=== PATIENT | female | born 1955 | race Caucasian/White ===

== ENCOUNTER 2025-06-05 08:15 | Emergency (ER) | payer MEDICARE, SELFPAY ==
--- OUTSIDE RECORDS SUMMARY | 2020-09-19 10:15 | XMS_ITS | Continuity of Care Document ---
Author Organization [facility] Address [address] [place] [address] Phone Care Team Providers Care Zoology Technical Officer Name Role Phone Nael Valdez Unavailable Unavailable Procedures Procedure Date Covid Testing [facility] Covid Testing [facility] Advance Directives Directive Yes / No Effective Date File Name No Information Encounters Encounter Description Practice Location Reason(s) For Visit Diagnoses Date Provider Providers Copied on Encounter [facility], [address] [place] [address], [id number], tel:[phone] COVID ECHD Encounter for screening for other viral diseases Patrick Ferrara. [address] [place], [place], [id number], [place]. tel:[phone] [facility], [address] [place], [place], [id number], tel:[phone] COVID ECHD Encounter for screening for other viral diseases Patrick Ferrara. [address] [place], [place], [id number], [place]. tel:[phone] Family History Family Member Type Diagnosis Age At Onset No Information Payers Payer name Insurance type Covered democrat ID Authoriza tion(s) Aetna Medicare Advantage SILVANA [id number] Social History Type Description Quantity Date Captured Comments Alcohol Use Details Unknown Caffeine Use Details Unknown Tobacco Use Status No Information Smoking Status No Information Sex Female Sexual Orientation Straight or heterosexual Gender Identity Female Chief Complaint And Reason For Visit No Information Reason For Referral Reason For Referral No Information History Of Present Illness Encounter Date Complaint History Of Prese nt Illness No Information Functional Status Date Functional Assessmen t No Information Instructions Date Instruction Additional Infor mation No Information Assessments Type Assessment Date assessment Encounter for screening for othe r viral diseases Patient Care Teams Name Effective Dates (start - stop) Status Members No Information
[2025-06-05 08:27] VITALS: BP 178/95; PULSE 78; TEMP 36.4; O2SAT 98; BMI 28.7
--- OUTSIDE RECORDS SUMMARY | 2025-06-05 08:27 | XMS_ITS | Encounter Summary ---
Author Organization [facility] Address [address] [place] [address] Care Team Providers Care Centrifugal Drier Operator Name Role Phone Lashae Schmid MD Primary Care Provider [phone] Kwasi San MD Primary Care Provider [phone] Source Comments In the event this information is protected by the Federal Confidentiality of Alcohol and Drug AbusePatient Records regulations: The Federal rules restrict any use of the information to criminally investigate or prosecute any alcohol or drug abuse patient.[facility] Encounter Details Date Type Department Care Team (Late st Contact Info) Description 04/15/2013 Patient Msg Medical Records [address] [place] [address] Provider, Ccf APPT WITH DR. 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 file No t on file documented as of this encounter Plan of Treatment Upcoming Encounters Date Type Department Care Team (Latest Contact Info) Description 06/07/2025 2:00 PM EDT Office Visit OPHT Ophthalmology [address] [place] [address] Mike Smith MD [address] [place] [address] Diagnostics, Eye Tech And [address] [address] *6-8 W, DFE/OCT PRN AVASTIN PER BABIUCH 10/10/2025 2:00 PM EST Office Visit Family Medicine [place] [address] [place] [address] Kwasi San MD [address] [place] [address] Return in about 5 months (around 09/25/2025) for MEDICARE WELLNESS. documented as of this encounter Visit Diagnoses Not on filedocumented in this encounter Care Teams Centrifugal Drier Operator Relationship Specialty Start Date End Date Lashae Schmid MD [address] [place] [place] [address] PCP - General Internal Medicine 02/04/13 10/15/14 Kwasi San MD [address] [facility] [address] [place] [address] PCP - General Family Medicine 10/16/14 documented as of this encounter
--- OUTSIDE RECORDS SUMMARY | 2025-06-05 08:27 | XMS_ITS | Encounter Summary ---
Author Organization [facility] Address [address] [place] [address] Care Team Providers Care Leather Scraper Name Role Phone Lashae Schmid MD Primary Care Provider [phone] Kwasi San MD Primary Care Provider [phone] Source Comments In the event this information is protected by the Federal Confidentiality of Alcohol and Drug AbusePatient Records regulations: The Federal rules restrict any use of the information to criminally investigate or prosecute any alcohol or drug abuse patient.[facility] Encounter Details Date Type Department Care Team (Late st Contact Info) Description 08/12/2013 Patient Msg Medical Records [address] [place] [address] Provider, Ccf Appointment Cancellation Request Social History Tobacco Use Types Packs/Day Years [...] 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 [address] Kwasi San MD [address] [place] [address] Return in about 5 months (around 09/25/2025) for MEDICARE WELLNESS. documented as of this encounter Visit Diagnoses Not on filedocumented in this encounter Care Teams Leather Scraper Relationship Specialty Start Date End Date Lashae Schmid MD [address] [place] [address] [place] [address] PCP - General Internal Medicine 02/04/13 10/15/14 [place] [address] [place] [address] [address] [place] [address] PCP - General Family Medicine 10/16/14 documented as of this encounter
--- OUTSIDE RECORDS SUMMARY | 2025-06-05 08:27 | XMS_ITS | Encounter Summary ---
Author Organization [facility] Address [address] [place] [address] Care Team Providers Care Evaporative Cooler Installer Name Role Phone Roland Estrada DO Primary Care Provider Pcp, No Primary Care Provider Unavailabl e Pcp, No Primary Care Provider Unavailabl e Pcp, No Primary Care Provider Unavailabl e Jigar Calero MD Primary Care Provider [phone] Pcp, No Primary Care Provider Unavailabl e Lashae Schmid MD Primary Care Provider Kwasi San MD Primary Care Provider [phone] Source Comments In the event this information is protected by the Federal Confidentiality of Alcohol and Drug AbusePatient Records regulations: The Federal rules restrict any use of the information to criminally investigate or prosecute any alcohol or drug abuse patient.[facility] Encounter Details Date Type Department Care Team (Late st Contact Info) Description 10/06/2006 Abstract General Surgery [address] [place] [address] Damian Ibarra Social History Tobacco Use Types Packs/Day Years Used Date Smoking Tobacco: Never Alcohol Use Standard Drinks/Week Comments No 0 (1 standard drink = 0.6 oz pur e alcohol) Comments No Sex and Gender Information Value Date Recorded Sex Assigned at Not on file Legal Sex Female 10:03 AM EST Gender Identity Not on file Sexual Orientation Not on file documented as of this encounter Progress Notes * 10/06/2006 9:37 AM WILSONThis 51 year old female submitted a completed questionnaire to [facility] for consideration of weight management surgery. Her history below is as outlined by the patient in her questionnaire response. WEIGHT HISTORY Pt states that her current height is 65 inches and her current weight is 257 #. Wt over time: Age 8 pt was 100 lbs Age 16 pt was 135 lbs. Age 23 pt was 250 lbs. Age 28 pt was 250 lbs. Age 33 pt was 180 lbs. Age 38 pt was 165 lbs. Age 43 pt was 200 lbs. Age 48 pt was 276 lbs. Heaviest weight, not counting pregnancies: 276 Diets Attempted: Cabbage Soup in over 6 months with weight loss of 10 #. Calorie count in 2004 over 12 months with weight loss of 15#. Calorie count in 2005 over 4 months with weight loss of 30#. Grapefruit in 1979 over 10 months with weight loss of 0 #. Liquied Protein Diet in 1986 over 12 months with weight loss of 125 #. Metabolife in 1999 over 10 months with weight loss of 20 #. Optifast in 1986 over 6 months with weight loss of 25 #. Nael Key in 1981 over 5 months with weight loss of 0 #. Weight Watchers in 1980 over months 8 with weight loss of 50 #. Diet Medications taken: Adipex started in 2005 for 4 months with 50 lb wt loss. Dexatrim started in 1978 for 12 with 10 lb wt loss. Fen-Phen started in 1994 for 6 with 40 lb wt loss. Pentermine started in 1986 for 8 with 120 lb wt loss. Redux started in 1991 for 3 with 5 lb wt loss. Of the medications taken, which were physician supervised? Adipex, Dexatrim, Fen-Phen, Pentermine and Redux Behavioral Diet Measures: Patient has not tried any behavioral treatments to lose weight. MEDICATIONS Allergies: Review of patient's allergies indicates: Penicillins Comment: Red Blotchy Face No Latex Allergy Current Medications: Current outpatient prescriptions LISINOPRIL 10 MG TAB, Take one(1) tablet daily. VITAMIN E 400 UNIT CAP, Take one(1) tablet twice daily. CALCIUM 500 MG TAB, Take one(1) tablet two(2) times daily. PRILOSEC 20 MG CAP, Take one(1) tablet daily. EXCEDRIN EXTRA STRENGTH 250 MG-250 MG-65 MG TAB, Take one(1) tablet four (4) times daily. DYAZIDE 37.5 MG-25 MG CAP, Take one (1) capsule daily. KLOR-CON 10 10 MEQ TAB, PRIOR SURGERY: PAST SURGICAL HISTORY: Past Surgical History of (foot) Past Surgical History of (D&C) Past Surgical History of (T&A) Removal of Tonsils,<10 Y/O (Tonsillectomy) Prior difficulty with anesthesia: No. MEDICAL HISTORY: PAST MEDICAL HISTORY: Benign Hypertension Irregular Menstruation Rectocele Esophageal Reflux General Osteoarthrosis (all major joints) Broken bones? None. Therapy or medications for any emotional disorders? Eating disorders in unanswered dx by Dr. antunez . Current therapy: No. 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 Retired from a Not answered on questionaire. Caffeine History: Patient denies using caffeine. Tobacco History: Patient never smoked or used tobacco products. Alcohol History: Yes. Wine: 2 - 4 oz. drinks per month. History of alcohol dependency: No. Drug History: No, patient denies history of drug use. FAMILY HISTORY: FAMILY HISTORY Mother: Cancer Father: Alzheimer's Disease CALL OR CONTACT CENTRE MANAGER HISTORY Date of last refuge manager exam? [address]. Performed [address] Jones, whose phone # is [phone]. Did you have a PAP test at the time of this exam? Yes. Have you ever had an abnormal PAP test? No Have you ever had polycystic ovarian syndrome? No Currently ? No History of Pregnancies: Have you ever been ? Yes. Number of live births: 5. and Number of miscarriages: 1. Have you had an evaluation of infertility? No. History of infertility treatment: No.. Menstrual History: Patient is not sure. PCOS Screening: Menstrual Irregularity: Not on BCPs, 8 or fewer periods per year. and No periods for extended period of time (4 or more months)., Skin Problems: Excess facial hair and Skin tags and Weight & Insulin-based Problems: Family hx of diabetes, heart disease or HTN EPWORTH SLEEPINESS SCALE SCORE: 14 Observed Sleep Apnea: No Family hx sleep apnea: No. BINGE EATING SCORE (Eating Habits Checklist): 36 EXERCISE HABITS QUESTIONNAIRE Past week different in terms of extended injury, illness or vacation? Yes In past week has patient been about as active as usual. In past week climbed UP avg 1 flights of stairs In past week walked an avg of 0 blocks per day Sport or recreation in past week: No sport. Avg. hrs / week watching TV / Cable / VCR: 11 - 20 Excluding TV time, avg. hrs / week spent sittin or more GRWQ Pt's Goal Wt: 150 lbs Dream Weight: 125 lbs Happy Weight: 150 lbs. Acceptable Weight: 165 lbs. Disappointing Weight: 190 lbs Single most important thing that pt. expects to change as result of wt loss: The way I feel Physically, not to have so much pain in my knees so I can Play with my grandchildren. Go up and down steps. Patient was referred to this program by PCP outside [facility] Internet TV/ Radio Karen Carter Ma documented in this encounter Plan of Treatment Upcoming Encounters Date Type Department Care Team (Latest Contact Info) Description 06/07/2025 2:00 PM EDT Office Visit OPHT Ophthalmology [address] [place] [address] Mike Smith MD [address] [place] [address] Diagnostics, Eye Tech And [address] [address] *6-8 W, DFE/OCT PRN AVASTIN PER ISMAEL 10/10/2025 2:00 PM EST Office Visit Family Medicine [place] [address] [facility] [address] Kwasi San MD [address] [facility] [address] [place] [address] Return in about 5 months (around 09/25/2025) for MEDICARE WELLNESS. documented as of this encounter Visit Diagnoses Not on filedocumented in this encounter Care Teams Evaporative Cooler Installer Relationship Specialty Start Date End Date Roland Estrada DO [address] [place] [address] PCP - General 04/01/07 12/09/12 Pcp, No [address] [place] [address] PCP - General 03/29/07 03/31/07 Pcp, No [address] [place] [address] PCP - General 07/24/06 02/15/07 Pcp, No PCP - General 12/10/12 01/19/13 Jigar Calero MD PCP - General Internal Medicine 01/20/13 01/26/13 Pcp, No PCP - General 01/27/13 02/03/13 Lashae Schmid MD [address] [place] [address] PCP - General Internal Medicine 02/04/13 10/15/14 Kwasi San MD [address] [place] [address] PCP - General Family Medicine 10/16/14 documented as of this encounter
--- OUTSIDE RECORDS SUMMARY | 2025-06-05 08:27 | XMS_ITS | Encounter Summary ---
Author Organization [facility] Address [address] [place], [place] [address] Care Team Providers Care Clock Mechanic Name Role Phone Kwasi San MD Primary Care Provider [phone] Source Comments In the event this information is protected by the Federal Confidentiality of Alcohol and Drug AbusePatient Records regulations: The Federal rules restrict any use of the information to criminally investigate or prosecute any alcohol or drug abuse patient.[facility] Encounter Details Date Type Department Care Team (Late st Contact Info) Description 05/06/2024 Patient Msg Family Medicine [place] [address] [facility] [address] [place] [id number] Provider, Ccf Appointment reschedule Social History Tobacco Use Types Packs/Day Years Used Date Smoking Tobacco: Never Smokeless Tobacco: Never Alcohol Use Standard Drinks/Week Comments Yes 0 (1 standard drink = 0.6 oz pur e alcohol) 1 glass of wine per week Social Connection and Isolation Panel Answer Date Recorded In a typical week, how many times do you talk on the phone with family, friends, or neighbors? More than three times a week 10/03/2022 How often do you get togethe r with friends or relatives? Once a week 10/03/2022 How often do you attend chur or jehovah's witness services? More than 4 times per year 10/03/2022 Do you belong to any clubs o r organizations such as pentecostal groups, unions, fraternal or athletic groups, or school groups? Yes 10/03/2022 How often do you attend meet ings of the clubs or organizations you belong to? More than 4 times per year 10/03/2022 Are you , , di vorced, , never , or living with a partner? 10/03/2022 AUDIT-C Answer Date Recorded Q1: How often do you have a drink containing alc ohol? 2-3 times a week 10/03/2022 Q2: How many drinks containi ng alcohol do you have on a typical day when you are drinking? 1 or 2 10/03/2022 Q3: How often do you have si x or more drinks on one occasion? Never 10/03/2022 Overall Financial Resource Strain (CARDIA) Answe r Date Recorded How hard is it for you to pa y for the very basics like food, housing, medical care, and heating? Somewhat hard 10/03/2022 PHQ-2 Answer Date Recorded PHQ-2 score 0 12/04/2020 [facility] of Occupat ional Health - Occupational Stress Questionnaire Answer Date Recorded Do you feel stress - tense, restless, nervous, or anxious, or unable to sleep at night because your mind is troubled all the time - these days? Not at all 10/03/2022 Exercise Vital Sign Answer Date Recorde d On average, how many days pe r week do you engage in moderate to strenuous exercise (like a brisk walk)? 3 days 10/03/2022 On average, how many minutes do you engage in exercise at this level? 30 min 10/03/2022 Hunger Vital Sign Answer Date Recorded Within the past 12 months, y ou worried that your food would run out before you got the money to buy more. Never true 10/03/20 22 Within the past 12 months, t he food you bought just didn't last and you didn't have money to get more. Never true 10/03/2022 PRAPARE - Transportation Answer Date Re corded In the past 12 months, has l ack of transportation kept you from medical appointments or from getting medications? No 09/18 In the past 12 months, has l ack of transportation kept you from meetings, work, or from getting things needed for daily living? No 10/03/2022 Housing Stability Vital Sign Answer Chris e Recorded In the last 12 months, was t here a time when you were not able to pay the mortgage or rent on time? No 10/03/2022 Number of Places Lived in the Last Year Not on f ile 10/03/2022 In the last 12 months, was t here a time when you did not have a steady place to sleep or slept in a senior care (including now)? No 10/03/2022 Area Deprivation Index Answer Date Wang rded National Score (1-100), lower number is lower ri sk 64 02/25/2023 State Score (1-10), lower number is lower risk 4 02/25/2023 Data from: https://www.neighborhoodatlas.medicine.[facility].edu/. Last address used for calculation [address] 02/25/2023 Education Answer Date Recorded What is the highest level of school you have completed or the highest degree you have received? 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 Answer Date of Assessment Author No 02/02/2018 1:56 PM Mary Bateman RN * Are you blind or do you have serious difficulty seeing, even when wearing glasses? Answer Date of Assessment Author No 02/02/2018 1:56 PM Mary Bateman, KEREN * Do you have serious difficulty walking or climbing stairs? Answer Date of Assessment Author No 02/02/2018 1:56 PM Mary Bateman RN * Do you have difficulty dressing or bathing? Answer Date of Assessment Author No 02/02/2018 1:56 PM EDT Mary Miles RN * Because of a physical, mental, or emotional condition, do you have difficulty doing errands alone such as visiting a doctor's office or shopping? Answer Date of Assessment Author No 02/02/2018 1:56 PM EDT Mary Miles RN documented as of this encounter Mental Status * Because of a physical, mental, or emotional condition, do you have serious difficulty concentrating, remembering, or making decisions? Answer Entry Date Author No 02/02/2018 1:56 PM EDT Mary Miles RN documented in this encounter Plan of Treatment Upcoming Encounters Date Type Department Care Team (Latest Contact Info) Description 06/07/2025 2:00 PM EDT Office Visit OPHT Ophthalmology [address] [place] [address] Mike Smith MD [address] [place] [address] Diagnostics, Eye Tech And [address] [address] *6-8 W, DFE/OCT PRN AVASTIN PER ISMAEL 10/10/2025 2:00 PM EST Office Visit Family Medicine [place] [address] [place] [address] Kwasi San MD [id number] [place] [address] Return in about 5 months (around 09/25/2025) for MEDICARE WELLNESS. documented as of this encounter Visit Diagnoses Not on filedocumented in this encounter Care Teams Clock Mechanic Relationship Specialty [place] [address] [place] [address] [address] [place] [address] PCP - General Family Medicine 10/16/14 documented as of this encounter
--- OUTSIDE RECORDS SUMMARY | 2025-06-05 08:27 | XMS_ITS | Encounter Summary ---
Author Organization [facility] Address [address] [place] [id number] Care Team Providers Care Cigar Packing Examiner Name Role Phone Kwasi San MD Primary Care Provider [phone] Source Comments In the event this information is protected by the Federal Confidentiality of Alcohol and Drug AbusePatient Records regulations: The Federal rules restrict any use of the information to criminally investigate or prosecute any alcohol or drug abuse patient.[facility] Encounter Details Date Type Department Care Team (Late st Contact Info) Description 06/10/2023 [place] [address] Provider, [facility] Actionable Imaging Result Notification Patient Outreach Social History Tobacco Use Types Packs/Day Years Used Date Smoking Tobacco: Never Smokeless Tobacco: Never Alcohol Use Standard Drinks/Week Comments Yes 0 (1 standard drink = 0.6 oz pur e alcohol) occassional Social Connection and Isolation Panel Answer Date Recorded In a typical week, how many times do you talk on the phone with family, friends, or neighbors? More than three times a week 10/03/2022 How often do you get togethe r with friends or relatives? Once a week 10/03/2022 How often do you attend chur ch or evangelical services? More than 4 times per year 10/03/2022 Do you belong to any clubs o r organizations such as presybeterian groups, unions, fraternal or athletic groups, or [...] Answer Date Recorded PHQ-2 score 0 12/04/2020 [facility] - Occupational Stress [...] place to sleep or slept in a chcf (including now)? No 10/03/2022 Area Deprivation Index Answer Date Wang rded National Score (1-100), lower number is lower ri sk 64 02/25/2023 State Score (1-10), lower number is lower risk 4 02/25/2023 Data from: https://www.neighborhoodatlas.medicine.[facility].edu/. 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 Answer Date of Assessment Author No 02/02/2018 1:56 PM Mary Bateman, KEREN * Are you blind or do you have serious difficulty seeing, even when wearing glasses? Answer Date of Assessment Author No 02/02/2018 1:56 PM Mary Bateman, KEREN * Do you have serious difficulty walking or climbing stairs? Answer Date of Assessment Author No 02/02/2018 1:56 PM Mary Bateman, RN * Do you have difficulty dressing or bathing? Answer Date of Assessment Author No 02/02/2018 1:56 PM Mary Bateman, KEREN * Because of a physical, mental, or [...] PM EDT Office Visit [facility] [address] [place] [address] Mike Smith MD [address] [place] [address] Diagn[facility] [address] [address] *6-8 W, DFE/OCT PRN AVASTIN PER BABIUCH 10/10/2025 2:00 PM EST Office Visit Family [facility] [place] [address] [place] [address] Kwasi San MD [address] [place] [address] Return in about 5 months (around 09/25/2025) for MEDICARE WELLNESS. documented as of this encounter Visit Diagnoses Not on filedocumented in this encounter Care Teams Cigar Packing Examiner Relationship Specialty Start Date End Date Kwasi San MD [address] [facility] [address] [place] [address] PCP - General Family Medicine 10/16/14 documented as of this encounter
--- OUTSIDE RECORDS SUMMARY | 2025-06-05 08:27 | XMS_ITS | Encounter Summary ---
Author Organization [facility] Address [address] [place] [id number] Care Team Providers Care Electronic Operator Name Role Phone Kwasi San MD Primary Care Provider [phone] Source Comments In the event this information is protected by the Federal Confidentiality of Alcohol and Drug AbusePatient Records regulations: The Federal rules restrict any use of the information to criminally investigate or prosecute any alcohol or drug abuse patient.[facility] Encounter Details Date Type Department Care Team (Late st Contact Info) Description 02/01/2021 Patient [facility] [address] [place] [address] Provider, [facility] ADVANCE DIRECTIVES INFORMATION Social History Tobacco Use Types Packs/Day Years Used Date Smoking Tobacco: Never Smokeless Tobacco: Never Alcohol Use Standard Drinks/Week Comments Yes 0 (1 standard drink = 0.6 oz pur e alcohol) glass of wine once a month Social Connection and Isolation Panel Answer Date Recorded In a typical week, how many times do you talk on the phone with family, friends, or neighbors? More than three times a week 12/04/2020 How often do you get togethe r with friends or relatives? More than three times a week 12/04/2020 How often do you attend chur or taoist services? More than 4 times per year 12/04/2020 Do you belong to any clubs o r organizations such as yazidism groups, unions, fraternal or athletic groups, or school groups? Yes 12/04/2020 How often do you attend meet ings of the clubs or organizations you belong to? 1 to 4 times per year 12/04/2020 Are you , , di vorced, , never , or living with a partner? 12/04/2020 AUDIT-C Answer Date Recorded Q1: How often do you have a drink containing alc ohol? 2-3 times a week 12/04/2020 Q2: How many drinks containi ng alcohol do you have on a typical day when you are drinking? 1 or 2 12/04/2020 Q3: How often do you have si x or more drinks on one occasion? Never 12/04/2020 Overall Financial Resource Strain (CARDIA) Answe r Date Recorded How hard is it for you to pa y for the very basics like food, housing, medical care, and heating? Not hard at all 12/04/2020 PHQ-2 Answer Date Recorded PHQ-2 score 0 12/04/2020 [facility] - Occupational Stress Questionnaire Answer Date Recorded Do you feel stress - tense, restless, nervous, or anxious, or unable to sleep at night because your mind is troubled all the time - these days? Not at all 12/04/2020 Exercise Vital Sign Answer Date Recorde d On average, how many days pe r week do you engage in moderate to strenuous exercise (like a brisk walk)? 3 days 12/04/2020 On average, how many minutes do you engage in exercise at this level? 20 min 12/04/2020 Hunger Vital Sign Answer Date Recorded Within the past 12 months, y ou worried that your food would run out before you got the money to buy more. Never true 12/04/19 21 Within the past 12 months, t he food you bought just didn't last and you didn't have money to get more. Never true 12/04/2020 PRAPARE - Transportation Answer Date Re corded In the past 12 months, has l ack of transportation kept you from medical appointments or from getting medications? No 11/19 In the past 12 months, has l ack of transportation kept you from meetings, work, or from getting things needed for daily living? No 12/04/2020 Housing Stability Vital Sign Answer Chris e Recorded In the last 12 months, was t here a time when you were not able to pay the mortgage or rent on time? No 12/04/2020 In the last 12 months, how many places have you lived? 1 12/04/2020 In the last 12 months, was t here a time when you did not have a steady place to sleep or slept in a senior living (including now)? No 12/04/2020 Area Deprivation Index Answer Date Wang rded National Score (1-100), lower number is lower ri sk Not on file 09/23/2020 State Score (1-10), lower number is lower risk N ot on file 09/23/2020 Data from: https://www.neighborhoodatlas.medicine.[facility].edu/. 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 documented as of this encounter Visit Diagnoses Not on filedocumented in this encounter Care Teams Electronic Operator Relationship Specialty Start Date End Date Kwasi San MD [address] [facility] [address] [place] [address] PCP - General Family Medicine 10/16/14 documented as of this encounter
--- OUTSIDE RECORDS SUMMARY | 2025-06-05 08:27 | XMS_ITS | Clinical Summary ---
Author Organization Address [address] [place], [place] [id number] Care Team Providers Care Gang Investigator Name Role Phone Kwasi San MD Primary Care Provider [phone] Allergies Active Allergy Reactions Criticality Noted Date Comments Clindamycin Itching 05/15/2009 Clindamycin Hcl Rash 02/03/2023 Clindamycin Palmitate Rash 02/03/2023 Penicillins High 10/06/2006 Red Blotchy Face Medications * This document contains information received from the source organization and may not represent a complete record from that organization. MULTIVITAMIN CAP Take one(1) capsule daily. 0 8 Active ascorbic acid(VITAMIN C 500 MG TAB)Indications:Ot her and unspecified postsurgical nonabsorption Take one(1) tablet daily. 0 8 Active cyanocobalamin(VIT DEWEY B-12 1,000 MCG SUBLINGUAL TAB)Indications:Ot her and unspecified postsurgical nonabsorption Take one(1) tablet daily. 0 8 Active VITAMIN E 400 UNIT CAPIndications:Oth er and unspecified postsurgical nonabsorption Take one(1) tablet daily. 0 8 Active mometasone (ELOCON) 0.1 % cream Use in both ears once daily as needed for ear itching and flaking. 15 g 1 3 Active oxymetazoline (AFRIN, OXYMETAZOLINE,) 0.05 % nasal spray Use 2 Sprays in the nose two times a day. 22 mL 3 Active cholecalciferol (VITAMIN D-3) 50 mcg (2,000 unit) tabletIndications: Vitamin D deficiency Take 1 tablet by mouth once daily. 90 tablet 3 4 Active tacrolimus (PROTOPIC) 0.03 % ointmentIndication s:Perioral dermatitis Apply to affected area two times a day. 60 g 3 5 Active vit C,G-Vt-joebc-lutei n-zeaxan (PRESERVISION AREDS-2) 250-90-40-1 mg Take 1 capsule by mouth two times a day with meals. Active amLODIPine (NORVASC) 5 mg tabletIndications: Essential hypertension, benign Take 1 tablet by mouth once daily. 90 tablet 5 Active lisinopril (ZESTRIL) 40 mg tabletIndications: Essential hypertension, benign Take 1 tablet by mouth once daily. 90 tablet 5 Active Active Problems Problem Noted Date Diagnosed Date Exudative age-related macula r degeneration, left eye, with active choroidal neovascularization 12/18/2023 HLD (hyperlipidemia) 12/24/2022 Assessment & Plan (07/30/2023 9:43 AM EDT): Stable on medication Assessment & Plan (12/24/2022 1:41 PM EST): Assessment: monitored by PCP S/P gastric bypass 12/24/2022 Assessment & Plan (09/15/2023 2:07 PM EST): Assessment: Body mass index is 27.25 kg/m . Assessment & Plan (07/30/2023 9:46 AM EDT): History of Gastric Bypass Assessment & Plan (12/24/2022 2:36 PM EST): Assessment: 2002 PUD (peptic ulcer disease) 12/24/2022 Assessment & Plan (07/30/2023 9:47 AM EDT): Stable on PPI Assessment & Plan (12/24/2022 2:37 PM EST): Assessment: takes omeprazole. Follows with GI Screen for colon cancer 05/14/2018 Overview (05/14/2018): Added automatically from request for surgery [id number] S/P laparoscopic cholecystectomy 02/16/2018 OA (osteoarthritis) of knee 03/07/2013 Essential hypertension, benign 04/08/2007 Assessment & Plan (09/15/2023 2:06 PM EST): Assessment: managed on medication BP 150/86 Assessment & Plan (07/30/2023 9:43 AM EDT): Stable on medication BP today To take medication morning of surgery Assessment & Plan (12/24/2022 1:41 PM EST): Assessment: treated and managed by PCP Resolved Problems Problem Noted Date Diagnosed Date Resolved Date Back pain 01/30/2018 02/02/2018 Obesity, Class II, BMI 35-39.9 E66.9 01/30/2018 12/30/2022 Acute cholecystitis 2018 02/03/20 18 Overview (01/31/2018): Added automatically from request for surgery [id number] Uterovaginal prolapse 11/23/20122012 POST OP 01/26/2009 08/18/2013 Other and unspecified postsu rgical nonabsorption 12/07/2008 05/11/2015 Esophageal reflux 04/08/2007 05/11/2015 Eating disorder, unspecified 10/07/2006 08/18/2013 Encounters Date Type Department Care Team Description 04/25/2025 2:00 PM EDT Office Visit Family Medicine [place] [address] [place] [address] Kwasi San MD Essential hypertension, benign (Primary Dx); Encounter for screening mammogram for breast cancer 04/25/2025 Travel 04/18/2025 2:00 PM EDT Office Visit [facility] Ophthal[facility] [address] [place] [address] Flory Woodson MD Diagnostics, Eye Tech And Pseudophakia of both eyes (Primary Dx); Exudative age-related macular degeneration, left eye, with active choroidal neovascularization (HCC); Nonexudative age-related macular degeneration, right eye, intermediate dry stage 04/12/2025 Refill [facility] [place] [address] [id number] Kwasi San MD Refill Request 04/12/2025 Refill Family Medicine [place] [address] [id number] Kwasi San MD Refill Request 04/11/2025 Travel from Last 3 Months Family History Medical History Relation Comments Alzheimer's Disease Father Cancer Mother colon,lymps Coronary Artery Disease Mother Difficulty with anesthesia No Family History Relation Status Comments Father (Age 70) alzheimer's Mother (Age 75) Cancer Sister 1 Alive Sister 2 Alive Sister 3 Alive Sister 4 Alive Social History Tobacco Use Types Packs/Day Years Used Date Smoking Tobacco: Never Smokeless Tobacco: Never Tobacco Cessation:Counseling Given: Not Answered Alcohol Use Standard Drinks/Week Comments Yes 0 (1 standard drink = 0.6 oz pur e alcohol) 1 glass of wine per week [facility] Utilities Answer Date Recorded In the past 12 months has [employer], gas, oil, or water [employer] threatened to shut off services in your home? No 06/30/2024 Social Connection and Isolation Panel Answer Date Recorded In a typical week, how many times do you talk on the phone with family, friends, or neighbors? More than three times a week 06/30/2024 How often do you get togethe r with friends or relatives? More than three times a week 06/30/2024 How often do you attend chur ch or adventist services? More than 4 times per year 06/30/2024 Do you belong to any clubs o r organizations such as latter day groups, unions, fraternal or athletic groups, or school groups? Yes 06/30/2024 How often do you attend meet ings of the clubs or organizations you belong to? More than 4 times per year 06/30/2024 Are you , , di vorced, , never , or living with a partner? 06/30/2024 AUDIT-C Answer Date Recorded Q1: How often do you have a drink containing alc ohol? 2-3 times a week 06/30/2024 Q2: How many drinks containi ng alcohol do you have on a typical day when you are drinking? 1 or 2 06/30/2024 Q3: How often do you have si x or more drinks on one occasion? Never 06/30/2024 Overall Financial Resource Strain (CARDIA) Answe r Date Recorded How hard is it for you to pa y for the very basics like food, housing, medical care, and heating? Not very hard 06/30/2024 PHQ-2 Answer Date Recorded PHQ-2 score 0 06/30/2024 [facility] - Occupational Stress Questionnaire Answer Date Recorded Do you feel stress - tense, restless, nervous, or anxious, or unable to sleep at night because your mind is troubled all the time - these days? Only a little 06/30/2024 Exercise Vital Sign Answer Date Recorde d On average, how many days pe r week do you engage in moderate to strenuous exercise (like a brisk walk)? 3 days 06/30/2024 On average, how many minutes do you engage in exercise at this level? 20 min 06/30/2024 Hunger Vital Sign Answer Date Recorded Within the past 12 months, y ou worried that your food would run out before you got the money to buy more. Never true 06/30/20 24 Within the past 12 months, t he food you bought just didn't last and you didn't have money to get more. Never true 06/30/2024 PRAPARE - Transportation Answer Date Re corded In the past 12 months, has l ack of transportation kept you from medical appointments or from getting medications? No 06/19 In the past 12 months, has l ack of transportation kept you from meetings, work, or from getting things needed for daily living? No 06/30/2024 Housing Stability Vital Sign Answer Chris e [...] place to sleep or slept in a detention (including now)? No 10/03/2022 Area Deprivation Index Answer Date Wang rded National Score (1-100), lower number is lower ri sk 64 02/25/2023 State Score (1-10), lower number is lower risk 4 02/25/2023 Data from: https://www.neighborhoodatlas.medicine.[facility].edu/. 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 Not on file No t on file Last Filed Vital Signs Vital Sign Reading Time Taken Comments Blood Pressure 133/79 04/25/2025 1:56 PM EDT Pulse 69 04/25/2025 1:56 PM EDT Temperature 36.5 C (97.7 F) 04/25/2025 1:56 PM EDT Respiratory Rate 16 09/24/2023 12:09 PM EST Oxygen Saturation 99% 04/25/2025 1:56 PM EDT Inhaled Oxygen Concentration - - Weight 75.9 kg (167 lb 5.3 oz) 04/25/2025 1:56 P M EDT Height 162.6 cm (5' 4 ) 07/01/2024 1:47 PM EDT Body Mass Index 28.72 07/01/2024 1:47 PM EDT Plan of Treatment Upcoming Encounters Date Type Department Care Team (Latest Contact Info) Description 06/07/2025 2:00 PM EDT Office Visit [facility] Ophthalmology [address] [place], [place] [phone] Mike Smith MD [address] [place] [address] Diagnostics, Eye Tech And [address] [address] *6-8 W, DFE/OCT PRN AVASTIN PER BABIUCH 10/10/2025 2:00 PM EST Office Visit Family Medicine [place] [address] [place], [place] [id number] Kwasi San MD [address] [facility] [address] [facility] [place] [id number] Return in about 5 months (around 09/25/2025) for MEDICARE WELLNESS. Health Maintenance Due Date Last Done Comments Hepatitis C Screening 1971 CT Colonography 1998 Cologuard (FIT-DNA) 1998 Fecal Occult Blood 1998 Sigmoidoscopy 1998 Pneumococcal Vaccine: 50+ (1 of 1 - PCV) 2003 Shingrix Vaccine (1 of 2) 2003 Bone Density Screening 2018 Mammogram Screening 06/17/2022 06/17/2021, 5 Advance Directive Discussion 10/19/2024 Medicare Advantage Annual We llness Visit 10/19/2024 07/01/2024 Influenza Vaccine (#1) 2025 Anxiety Screening 07/01/2025 07/01/2024 Depression Screening 07/01/2025 07/01/2024 Annual PCP Team Chronic Dise ase Visit 04/25/2026 04/25/2025, 05/14/2018 Diabetes Screening 06/29/2027 06/29/2024, 1 10/21/2022, 02/20/2023, Additional history exists RSV Vaccine (1 - 1-dose 75+ series) 01/30/2028 DTaP,Tdap,Td Vaccine (2 - Td or Tdap) 05/14/2028 05/14/2018 (Patient/Parent/Guardian Counseled and Declines) Lipid Screening 06/29/2029 06/29/2024, 02/2023, 06/05/2021, Additional history exists Colonoscopy 11/11/2032 11/11/2022, 06/2018, 08/27/2018, Additional history exists Colorectal Cancer Screening 11/11/2032 Medical Devices Implanted Type Area Acoustical Logging Engineer Device Identifier Shelf Expiration Date Model / Serial / Lot [id number]-Dp- A-Kind Implant - [id number] Implanted:Qty: 2 on 03/07/2013 at [facility] Implant Right: Bone - Knee DEPUY 08/07/2014 [id number] / / [id number] Description:Smartset HV Bone Cement [id number]-Bue-Rz- A-Kind Implant - [id number] Implanted:Qty: 1 on 03/07/2013 at [facility] Implant Right: Bone - Knee DEPUY 1960-50-3 000 / / [id number] Description:Sigma Femoral Po sterior Stabilized [id number]-Qeo-Fi- A-Kind Implant - [id number] Implanted:Qty: 1 on 03/07/2013 at [facility] Implant Right: Bone - Knee DEPUY 11/07/2022 1581-30-0 00 / / [id number] Description:PFC Sigma Tibial Tray Fixed Bearing Modular COCR 3 [id number]-Ev- A-Kind Implant - [id number] Implanted:Qty: 1 on 03/07/2013 at [facility] Implant Right: Bone - Knee DEPUY 06/07/2022 [id number] / / [id number] Description:PFC SigmModular Stem Cemented 13mm x 30mm [id number]-[id number]-Te- A-Kind Implant - [id number] Implanted:Qty: 1 on 03/07/2013 at [facility] Implant Right: Bone - Knee DEPUY 02/05/2017 1581-23-1 15 / / [id number] Description:PFC Sigma Tibial Insert Fixed Bearing Stabilized 3, 15mm Imp Propel Contour Sinus - [id number] Implanted:Qty: 1 on 09/24/2023 at [facility] Implant Right: Sinus [employer] 01/15/2025 [id number] / / [id number] Imp Propel Contour Sinus - [id number] Implanted:Qty: 1 on 09/24/2023 at [facility] Implant Left: Sinus [employer] 12/17/2024 [id number] / / [id number] [place] Aspheric Uv Absorbing Iol +22.5d Implanted:Qty: 1 on 08/07/2023 by Beatrice Teresa V, MD at [facility] Intraocular Lens Left: Eye [facility] 12/20/2026 CC60WF.22 5 / [id number] / Description:N/A [place] Aspheric Uv Absorbing Iol +16d Implanted:Qty: 1 on 09/16/2023 by Beatrice Teresa V, MD at [facility] Intraocular Lens Right: Eye [facility] 03/23/2027 CC60WF.16 0 / [id number] / Description:-0.41 0---Dome Pat 35mm Pfc Sig Sm Kn - [id number] Implanted:Qty: 1 on 03/07/2013 at [facility] Joint - Patella Right: Bone - Knee [employer] 01/05/2018 [id number] / / [id number] Description:Oval Dome Patell a 3-Peg, 35mm Plug Perfix Bard Medium Taper Polypropylene 1.55x1.3in Surgical - [id number] Implanted:Qty: 1 on 06/11/2016 at [facility] Mesh Left: Inguinal [employer] 01/17/2020 [id number] / / [id number] Procedures Procedure Name Priority Date/Time Associated Diagnosis Comments OCT MACULA CIRRUS OU (BOTH EYES) Routine 04/18/2025 2:10 PM EDT Exudative age-related macular degeneration, left eye, with active choroidal neovascularization (HCC) Nonexudative age-related macular degeneration, right eye, intermediate dry stage BASIC METABOLIC PANEL Routine 06/29/2024 8:35 AM EDT Essential hypertension, benign LIPID PANEL, FASTING Routine 06/29/2024 8:35 AM EDT HLD (hyperlipidemia) COLONOSCOPY DIAGNOSTIC Routine 11/11/2022 2:18 PM EST History of colon polyps Elevated fecal calprotectin POPEYE SCREENING Routine 06/17/2021 9:36 AM EDT Encounter for screening mammogram for malignant neoplasm of breast from Last 3 Months or Most Recently Relevant to Health Maintenance Results * OCT MACULA CIRRUS OU (BOTH EYES) (04/18/2025 2:10 PM EDT) Anatomical Region Laterality Modality Other Narrative 04/18/2025 2:20 PM EDT Date of Procedure 04/18/2025. Transaction Manager Information [employer] Medical Sergeant: VAZQUEZ. OCT Macula Interpretation Right Eye Findings include Drusen, RPE Irregularity; Negative for Intraretinal fluid, Subretinal fluid. Left Eye Findings include Subretinal fluid, PED, RPE Irregularity; Negative for Intraretinal fluid. Interval Change Right Eye Stable. Left Eye Stable. Mike Smith MD OPHTHALMOLOGY Final Result * (ABNORMAL) LIPID PANEL BASIC (06/29/2024 8:35 AM EDT) Cholesterol, Total 243(H) <200 mg/dL 06/29/2024 6:11 PM EDT [facility] Comment: <200 mg/dL, Desirable 200-239 mg/dL, Borderline high >239 mg/dL, High Triglyceride 63 <150 mg/dL 06/29/2024 6:11 PM EDT [facility] Comment: <150 mg/dL, Normal 150-199 mg/dL, Borderline high 200-499 mg/dL, High >499 mg/dL, Very high HDL Cholesterol 129 >39 mg/dL 4 6:11 PM EDT [facility] Comment: 40-59 mg/dL, Acceptable >59 mg/dL, High: Negative risk factor for coronary heart disease <40 mg/dL, Low: Positive risk factor for coronary heart disease Non HDL Cholesterol 114 <130 mg/dL 06/29/2024 6:11 PM EDT [facility] Comment: <130 mg/dL, Optimal 130-159 mg/dL, Near optimal/above optimal 160-189 mg/dL, Borderline high 190-219 mg/dL, High >219 mg/dL, Very high Secondary prevention optimal non HDL Cholesterol levels are recommended to be <100 mg/dL Fasting Time 12 hrs 06/29/2024 6:11 PM EDT [facility] VLDL Cholesterol 13 <30 mg/dL 06/29/20 24 6:11 PM EDT [facility] TC:HDL Ratio 1.88 <5.10 06/29/2024 6:11 PM EDT [facility] LDL Cholesterol, Calculated 101(H) <100 mg/dL 06/29/2024 6:11 PM EDT [facility] Comment: <100 mg/dL, Optimal 100-129 mg/dL, Near optimal/above optimal 130-159 mg/dL, Borderline high 160-189 mg/dL, High >189 mg/dL, Very high Secondary prevention optimal LDL Cholesterol levels are recommended to be < 70 mg/dL LDL:HDL Ratio 0.78 <2.54 06/29/2024 6:11 PM EDT [facility] Comment: Reference: 1. National Cholesterol Education Program ATP III Guideline At-A-Glance Quick Desk Reference: National Heart, Lung, and Blood [place]. National Institutes of Health. 2001: NIH Publication No. 01-3305. 2. An International Atherosclerosis Society position paper: global recommendations for the management of dyslipidemia: executive summary, Atherosclerosis. 2014: 232(2):410-413. Blood BLOOD SPECIMEN / Unknown Venipuncture / Unknown 06/29/2024 8:35 AM EDT 06/29/2024 8:35 AM EDT Kwasi San MD LABORATORY Final Result [facility] [address] [address] [place] [address], [facility] [address] [place] [id number] * (ABNORMAL) BASIC METABOLIC PANEL (06/29/2024 8:35 AM EDT) [facility] Glucose 87 74 - 99 mg/dL 06/29/2024 9:03 AM EDT [facility] Comment: The [place] Diabetes Association (ADA) provides guidance for cutoff values for fasting glucose and random glucose. The ADA defines fasting as no caloric intake for at least 8 hours. Fasting plasma glucose results between 100 to 125 mg/dL indicate increased risk for diabetes (prediabetes). Fasting plasma glucose results greater than or equal to 126 mg/dL meet the criteria for diagnosis of diabetes. In the absence of unequivocal hyperglycemia, results should be confirmed by repeat testing. In a patient with classic symptoms of hyperglycemia or hyperglycemic crisis, random plasma glucose results greater than or equal to 200 mg/dL meet the criteria for diagnosis of diabetes. Reference: Standards of Medical Care in Diabetes 2016, [place] Diabetes Association. Diabetes Care. 2016.39(Suppl 1). BUN 23(H) 7 - 21 mg/dL 06/29/2024 9:03 AM [facility] Creatinine 0.71 0.58 - 0.96 mg/dL 06/29/2024 9:03 AM [facility] Sodium 136 136 - 144 mmol/L 06/29/2024 9:03 AM [facility] Potassium 4.2 3.7 - 5.1 mmol/L 06/29/2024 9:03 AM [facility] Chloride 98 98 - 107 mmol/L 06/29/2024 9:03 AM [facility] CO2 25 22 - 30 mmol/L 06/29/2024 9:03 AM [facility] Anion Gap 13 8 - 15 mmol/L 06/29/2024 9:03 AM [facility] Calcium, Total 10.0 8.5 - 10.2 mg/dL 06/29/2024 9:03 AM [facility] Estimated Glomerular Filtration Rate 91 >=60 mL/min/1.7 3m 06/29/2024 9:03 AM [facility] Comment:Estimated Glomerular Filtration Rate (eGFR) is calculated using the 2020 CKD-EPI creatinine equation. This equation utilizes serum creatinine, sex, and age as parameters. The creatinine assay has traceable calibration to isotope dilution- mass spectrometry. Refer to KDIGO guidelines for clinical interpretation. In patients with unstable renal function, e.g. those with acute kidney injury, the eGFR may not accurately reflect actual GFR. Blood BLOOD SPECIMEN / Unknown Venipuncture / Unknown 06/29/2024 8:35 AM EDT 06/29/2024 8:35 AM EDT us Kwasi San MD LABORATORY Final Result [facility] [address] [place] [address] * COLONOSCOPY DIAGNOSTIC (11/11/2022 2:18 PM EST) Anatomical Region Laterality Modality Other 11/11/2022 2:18 PM EST Narrative 11/11/2022 3:21 PM EST A31 Gastrointestinal Endoscopy Patient Name: Reina Clancy Procedure Date: 11/11/2022 2:18 PM Date of : 1955 Admit Type: Outpatient Age: 67 Room: A3 PROC 1 Gender: Female Note Status: Finalized Attending MD: Daniel Ansari MD Procedure: Colonoscopy Indications: High risk colon cancer surveillance: Personal history of colonic polyps, Family history of colon cancer in a first-degree relative before age 60 years Providers: Daniel Ansari MD Patient Profile: This is a 67 year old female. Refer to note in patient chart for documentation of history and physical. Last Colonoscopy: August 2018. Referring Physician: Marva Fung (Referring MD) Medicines: Monitored Anesthesia Care Complications: No immediate complications. Requesting Provider: Procedure: Pre-Anesthesia Assessment: - ASA Grade Assessment: II - A patient with mild systemic disease. After I obtained informed consent, the scope was passed under direct vision. Throughout the procedure, the patient's blood pressure, pulse, and oxygen saturations were monitored continuously. The Colonoscope was introduced through the anus and advanced to the cecum, identified by appendiceal orifice and ileocecal valve. The Colonoscope was introduced through the anus and advanced to the cecum, identified by appendiceal orifice and ileocecal valve. The colonoscopy was performed without difficulty after switching from adult to pediatric colonoscope to navigate sigmoid colon. The patient tolerated the procedure well. The quality of the bowel preparation was good. The ileocecal valve, appendiceal orifice, and rectum were photographed. Moderate Sedation: MAC anesthesia was administered by the anesthesia team. Findings: Hemorrhoids were found on perianal exam. A 9 mm polyp was found in the transverse colon. The polyp was sessile. The polyp was removed with a cold snare. Resection and retrieval were complete. Multiple small and large-mouthed diverticula were found in the sigmoid colon and descending colon. Non-bleeding external and internal hemorrhoids were found during retroflexion. The hemorrhoids were large. The exam was otherwise without abnormality on direct and retroflexion views. Random colon biopsies taken with a cold forceps from right and left colon for microscopic colitis (patient history of diarrhea and elevated calprotectin) Impression: - Hemorrhoids found on perianal exam. - One 9 mm polyp in the transverse colon, removed with a cold snare. Resected and retrieved. - Diverticulosis in the sigmoid colon and in the descending colon. - Non-bleeding external and internal hemorrhoids. - The examination was otherwise normal on direct and retroflexion views. Estimated Blood Loss: Estimated blood loss was minimal. Recommendation: - Discharge patient to home (ambulatory). - Await pathology results. - Repeat colonoscopy in 5 years for surveillance. - Patient has a contact number available for emergencies. The signs and symptoms of potential delayed complications were discussed with the patient. Return to normal activities tomorrow. Written discharge instructions were provided to the patient. - Continue present medications. - Resume previous diet. Procedure Code(s): --- Professional --- 73851, Colonoscopy, flexible; with removal of tumor(s), polyp(s), or other lesion(s) by snare technique Diagnosis Code(s): --- Professional --- Z12.11, Encounter for screening for malignant neoplasm of colon Z86.010, Personal history of colonic polyps K64.8, Other hemorrhoids D12.3, Benign neoplasm of transverse colon (hepatic flexure or splenic flexure) Z80.0, Family history of malignant neoplasm of digestive organs K57.30, Diverticulosis of large intestine without perforation or abscess without bleeding CPT copyright 2020 [place] [employer]. All rights reserved. The codes documented in this report are preliminary and upon postdoctoral scientist review may be revised to meet current compliance requirements. Attending Participation: I personally performed the entire procedure. Scope In: 2:43:25 PM Scope Out: 3:13:10 PM MD Daniel Hager MD 11/11/2022 3:18:50 PM This report has been signed electronically by Daniel Ansari MD Number of Addenda: 0 Note Initiated On: 11/11/2022 2:18 PM us Marva Fung APRN.GRADES 1 THRU 6 VISITING TEACHER DIGESTIVE DISEASE Fin al Result * POPEYE SCREENING (06/17/2021 9:36 AM EDT) Anatomical Region Laterality Modality Other 06/17/2021 9:36 AM EDT Impressions 06/17/2021 11:02 AM EDT IMPRESSION: NEGATIVE There is no mammographic evidence of malignancy. A 1 year screening mammogram is recommended. Darren Egan M.D., lp/nithya:06/17/2021 11:02:02 [employer] Flatbed Driver(s): RT Erika(R)(M), [facility] letter sent: Normal over 40 Mammogram BI-RADS: 1 Negative Multiple national specialty organizations have released breast cancer screening guidelines for women at average risk for developing breast cancer - guidelines that are based on both evidence and opinion, yet differ on when to start and how often to screen for breast cancer. With representation from Breast Imaging, Internal Medicine, Women's Health, Family Medicine, and Medical/Surgical Oncology, the has carefully reviewed the data and reached the following consensus: 1) All women should engage in shared decision-making with their providers to decide when to start and how often to screen; 2) All women should have the opportunity to start screening mammography at age 40; 3) For women ages 45-55, we recommend annual screening mammograms; 4) For women ages 55 and over, we support both the transition from an annual to a biennial interval if this aligns more with patient's values and preferences, or continuation with annual screening; 5) All women should discuss with their providers when to stop screening mammograms. Isotope Hydrologist: Nithya Transcribe Date/Time: Jun 17 2021 9:19A Dictated by: DARREN EGAN MD This examination was interpreted and the report reviewed and electronically signed by: DARREN EGAN MD on Jun 17 2021 11:02AM EST Narrative 06/17/2021 11:02 AM EDT * * *Final Report* * * DATE OF EXAM: Jun 17 2021 9:36AM [id number] - [facility] SCREENING / PROCEDURE REASON: Encounter for screening mammogram for malignant neoplasm of breast * * * * Physician Interpretation * * * * RESULT: #[id number] - [facility] SCREENING BILATERAL DIGITAL SCREENING MAMMOGRAM WITH CAD: 06/17/2021 HISTORY: / Screening Mammogram-Patient reports NO symptoms. The technologist notes that positioning was limited secondary to physical constraints of the patient (right shoulder stiffness). The best images possible were obtained. RESULT: TECHNIQUE: The study was acquired using full field digital technology and interpreted from soft copy. Current study was also evaluated with a Computer Aided Detection (CAD). Comparison is made to exams dated: 05/31/2015 mammogram - [facility] and 06/26/2004 mammogram. There are scattered fibroglandular elements in both breasts. No significant masses, calcifications, or other findings are seen in either breast. There has been no significant interval change. Procedure Note Provider, [facility] - 06/17/2021 * * *Final Report* * * DATE OF EXAM: Jun 17 2021 9:36AM [id number] - [facility] SCREENING / PROCEDURE REASON: Encounter for screening mammogram for malignant neoplasm of breast * * * * Physician Interpretation * * * * RESULT: #[id number] - [facility] SCREENING BILATERAL DIGITAL SCREENING MAMMOGRAM WITH CAD: 06/17/2021 HISTORY: / Screening Mammogram-Patient reports NO symptoms. The technologist notes that positioning was limited secondary to physical constraints of the patient (right shoulder stiffness). The best images possible were obtained. RESULT: TECHNIQUE: The study was acquired using full field digital technology and interpreted from soft copy. Current study was also evaluated with a Computer Aided Detection (CAD). Comparison is made to exams dated: 05/31/2015 mammogram - [facility] and 06/26/2004 mammogram. There are scattered fibroglandular elements in both breasts. No significant masses, calcifications, or other findings are seen in either breast. There has been no significant interval change. IMPRESSION IMPRESSION: NEGATIVE There is no mammographic evidence of malignancy. A 1 year screening mammogram is recommended. Darren Egan M.D., lp/nithya:06/17/2021 11:02:02 [employer] Flatbed Driver(s): RASHAUN James)(M), [facility] letter sent: Normal over 40 Mammogram BI-RADS: 1 Negative Multiple national specialty organizations have released breast cancer screening guidelines for women at average risk for developing breast cancer - guidelines that are based on both evidence and opinion, yet differ on when to start and how often to screen for breast cancer. With representation from Breast Imaging, Internal Medicine, Women's Health, Family Medicine, and Medical/Surgical Oncology, the has carefully reviewed the data and reached the following consensus: 1) All women should engage in shared decision-making with their providers to decide when to start and how often to screen; 2) All women should have the opportunity to start screening mammography at age 40; 3) For women ages 45-55, we recommend annual screening mammograms; 4) For women ages 55 and over, we support both the transition from an annual to a biennial interval if this aligns more with patient's values and preferences, or continuation with annual screening; 5) All women should discuss with their providers when to stop screening mammograms. Isotope Hydrologist: Nithya Transcribe Date/Time: Jun 17 2021 9:19A Dictated by: DARREN EGAN MD This examination was interpreted and the report reviewed and electronically signed by: DARREN EGAN MD on Jun 17 2021 11:02AM EST Kwasi San MD [facility] Final Result from Last 3 Months or Most Recently Relevant to Health Maintenance Insurance [facility] MEDICARE ADVANTAGE PPO * Guarantor: Reina Clancy Account Type Relation to Patient Date of Phone Billing Address Self Pay Self 1955 [address] [place] [address] Care Teams Gang Investigator Relationship Specialty Start Date End Date Kwasi San MD [address] [place] [id number] PCP - General Family Medicine 10/16/14
--- OUTSIDE RECORDS SUMMARY | 2025-06-05 08:27 | XMS_ITS | Encounter Summary ---
Author Organization [facility] Address [facility] [place] [address] Care Team Providers Care Propellant Assembler Name Role Phone Kwasi San MD Primary Care Provider [phone] Source Comments In the event this information is protected by the Federal Confidentiality of Alcohol and Drug AbusePatient Records regulations: The Federal rules restrict any use of the information to criminally investigate or prosecute any alcohol or drug abuse patient.[facility] Encounter Details Date Type Department Care Team (Late st Contact Info) Description 02/12/2023 Patient Msg Internal Medicine [facility] [place], [place] [id number] Provider, Ccf Your primary care physician has placed lab orders for your upcoming appointment. Social History Tobacco Use Types Packs/Day Years [...] How often do you attend chur or pentecostalism services? More than 4 times per year 10/03/2022 Do you belong to any clubs o r organizations such as restorationist groups, unions, fraternal or athletic groups, or [...] Answer Date Recorded PHQ-2 score 0 12/04/2020 [facility] of Occupat ional Health - [...] place to sleep or slept in a retirement (including now)? No 10/03/2022 Area Deprivation Index Answer Date Wang rded National Score (1-100), lower number is lower ri sk 54 11/04/2022 State Score (1-10), lower number is lower risk N ot on file 11/04/2022 Data from: https://www.neighborhoodatlas.medicine.[facility].edu/. 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 Answer Date of Assessment Author No 02/02/2018 1:56 PM Mary Bateman, KEREN * Do you have difficulty dressing or [...] PM EDT Office Visit [facility] Ophthalmology [address] [place] [address] Mike Smith MD [address] [place] [address] Diagnostics, Eye Tech And [facility] [address] [address] *6-8 W, DFE/OCT PRN AVASTIN PER ISMAEL 10/10/2025 2:00 PM EST Office Visit Family Medicine [place] [address] [place] [address] Kwasi San MD [address] [place] [address] Return in about 5 months (around 09/25/2025) for MEDICARE WELLNESS. documented as of this encounter Visit Diagnoses Not on filedocumented in this encounter Care Teams Propellant Assembler Relationship Specialty Start Date End Date Kwasi San MD [address] [place] [address] PCP - General Family Medicine 10/16/14 documented as of this encounter
--- OUTSIDE RECORDS SUMMARY | 2025-06-05 08:27 | XMS_ITS | Encounter Summary ---
Author Organization [facility] Address [address] [place], [place] [id number] Care Team Providers Care Senior Commercial Loan Officer Name Role Phone Kwasi San MD Primary Care Provider [phone] Source Comments In the event this information is protected by the Federal Confidentiality of Alcohol and Drug AbusePatient Records regulations: The Federal rules restrict any use of the information to criminally investigate or prosecute any alcohol or drug abuse patient.[facility] Reason for Visit * Reason Onset Date Comments Refill Request 04/12/2025 Encounter Details Date Type Department Care Team (Late st Contact Info) Description 04/12/2025 Refill Family Medicine [place] [address] [place] [address] Kwasi San MD [address] [place], [place] [phone] Refill Request Social History Tobacco Use Types Packs/Day Years Used Date Smoking Tobacco: Never Smokeless Tobacco: Never Alcohol Use Standard Drinks/Week Comments Yes 0 (1 standard drink = 0.6 oz pur e alcohol) 1 glass of wine per week [facility] Utilities Answer Date Recorded In the past 12 months has th e electric, gas, oil, or water company threatened to shut off services in your [...] 06/30/2024 How often do you attend chur or evangelical services? More than 4 times per year 06/30/2024 Do you belong to any clubs o r organizations such as sikh groups, unions, fraternal or athletic groups, or [...] Answer Date Recorded PHQ-2 score 0 06/30/2024 [facility] of Occupat ional Health - Occupational Stress [...] place to sleep or slept in a penitentiary (including now)? No 10/03/2022 Area Deprivation Index Answer Date Wang rded National Score (1-100), lower number is lower ri sk 64 02/25/2023 State Score (1-10), lower number is lower risk 4 02/25/2023 Data from: https://www.neighborhoodatlas.medicine.[facility].edu/. 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 Answer Date of Assessment Author No 02/02/2018 1:56 PM EDT Mary Miles RN * Do you have difficulty dressing [...] PM EDT Office Visit [facility] Ophthalmology [address] [place] [address] Mike Smith MD [address] [place] [address] Diagnostics, Eye Tech And [address] [address] *6-8 W, DFE/OCT PRN AVASTIN PER ISMAEL 10/10/2025 2:00 PM EST Office Visit Family Medicine [place] [address] [place] [address] Kwasi San MD [address] [place] [address] Return in about 5 months (around 09/25/2025) for MEDICARE WELLNESS. documented as of this encounter Visit Diagnoses Diagnosis Essential hypertension, benign documented in this encounter Care Teams Senior Commercial Loan Officer Relationship Specialty Start Date End Date Kwasi San MD [address] [place] [address] PCP - General Family Medicine 10/16/14 documented as of this encounter
--- OUTSIDE RECORDS SUMMARY | 2025-06-05 08:27 | XMS_ITS | Encounter Summary ---
Author Organization [facility] Address [address] [place], [place] [id number] Care Team Providers Care Home Health Provider Name Role Phone Kwasi San MD Primary Care Provider [phone] Source Comments In the event this information is protected by the Federal Confidentiality of Alcohol and Drug AbusePatient Records regulations: The Federal rules restrict any use of the information to criminally investigate or prosecute any alcohol or drug abuse patient.[facility] Encounter Details Date Type Department Care Team (Late st Contact Info) Description 03/25/2023 Patient Msg Physical Therapy [address] [place], [place] [id number] Provider, Ccf Appointment Social History Tobacco Use Types Packs/Day Years [...] How often do you attend chur or pentecostal services? More than 4 times per year 10/03/2022 Do you belong to any clubs o r organizations such as sabianism groups, unions, fraternal or athletic groups, or [...] Answer Date Recorded PHQ-2 score 0 12/04/2020 [facility] of Occupat ional Health - Occupational [...] place to sleep or slept in a alf (including now)? No 10/03/2022 Area Deprivation Index Answer Date Wang rded National Score (1-100), lower number is lower ri sk 64 02/25/2023 State Score (1-10), lower number is lower risk 4 02/25/2023 Data from: https://www.neighborhoodatlas.medicine.[facility].edu/. 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 documented as of this encounter Visit Diagnoses Not on filedocumented in this encounter Care Teams Home Health Provider Relationship Specialty Start Date End Date Kwasi San MD [address] [facility] [address] [place] [address] PCP - General Family Medicine 10/16/14 documented as of this encounter
--- OUTSIDE RECORDS SUMMARY | 2025-06-05 08:27 | XMS_ITS | Encounter Summary ---
Author Organization [facility] Address [address] [place], [place] [id number] Care Team Providers Care Environmental Engineering Manager Name Role Phone Kwasi San MD Primary Care Provider [phone] Source Comments In the event this information is protected by the Federal Confidentiality of Alcohol and Drug AbusePatient Records regulations: The Federal rules restrict any use of the information to criminally investigate or prosecute any alcohol or drug abuse patient.[facility] Encounter Details Date Type Department Care Team (Late st Contact Info) Description 06/11/2023 Patient Msg Pulmonary Medicine [address] [facility] [place] [address] Provider, Ccf Pulmonary Appointment Social History Tobacco Use Types Packs/Day [...] How often do you attend chur or baptism services? More than 4 times per year 10/03/2022 Do you belong to any clubs o r organizations such as holiness groups, unions, fraternal or athletic groups, or [...] Answer Date Recorded PHQ-2 score 0 12/04/2020 [facility] of Occupat ional Health - Occupational [...] place to sleep or slept in a care home (including now)? No 10/03/2022 Area Deprivation Index Answer Date Wang rded National Score (1-100), lower number is lower ri sk 64 02/25/2023 State Score (1-10), lower number is lower risk 4 02/25/2023 Data from: https://www.neighborhoodatlas.medicine.[facility].edu/. 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 documented as of this encounter Visit Diagnoses Not on filedocumented in this encounter Care Teams Environmental Engineering Manager Relationship Specialty Start Date End Date Kwasi San MD [address] [facility] [address] [place] [address] PCP - General Family Medicine 10/16/14 documented as of this encounter
--- OUTSIDE RECORDS SUMMARY | 2025-06-05 08:27 | XMS_ITS | Encounter Summary ---
Author Organization [facility] Address [facility] [place] [address] Care Team Providers Care Director Embalmer Name Role Phone Kwasi San MD Primary Care Provider [phone] Source Comments In the event this information is protected by the Federal Confidentiality of Alcohol and Drug AbusePatient Records regulations: The Federal rules restrict any use of the information to criminally investigate or prosecute any alcohol or drug abuse patient.[facility] Encounter Details Date Type Department Care Team (Late st Contact Info) Description 06/16/2024 Patient Msg Internal Medicine Main [place] [place], [place] [phone] Mecca Petty MA Your PCP has placed lab order (s) for your upcoming appointment Social History Tobacco Use Types Packs/Day Years [...] often do you attend chur ch or sabianism services? More than 4 times per year [...] Answer Date Recorded PHQ-2 score 0 12/04/2020 [facility] of Occupat ional Health - Occupational Stress [...] place to sleep or slept in a nursing home (including now)? No 10/03/2022 Area Deprivation Index Answer Date Wang rded National Score (1-100), lower number is lower ri sk 64 02/25/2023 State Score (1-10), lower number is lower risk 4 02/25/2023 Data from: https://www.neighborhoodatlas.medicine.[facility].edu/. 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 documented as of this encounter Visit Diagnoses Not on filedocumented in this encounter Care Teams Director Embalmer Relationship Specialty Start Date End Date Kwasi San MD [address] [facility] [address] [place] [address] PCP - General Family Medicine 10/16/14 documented as of this encounter
--- OUTSIDE RECORDS SUMMARY | 2025-06-05 08:27 | XMS_ITS | Clinical Summary ---
Author Organization [facility] Address [address] [place] [address] Care Team Providers Care Plastic Boat Buffer Name Role Phone Unavailable Primary Care Provider Unavailabl e Social History Tobacco Use Types Packs/Day Years Used Date Smoking Tobacco: Never Assessed Comments Unknown Sex and Gender Information Value Date Recorded Sex Assigned at Not on file Legal Sex Female 7:05 PM EDT Gender Identity Not on file Sexual Orientation Not on file Last Filed Vital Signs Vital Sign Reading Time Taken Comments Blood Pressure 148/91 04/08/2022 12:00 PM EDT Pulse - - Temperature - - Respiratory Rate - - Oxygen Saturation - - Inhaled Oxygen Concentration - - Weight - - Height - - Body Mass Index - - Plan of Treatment Not on file
--- OUTSIDE RECORDS SUMMARY | 2025-06-05 08:27 | XMS_ITS | Encounter Summary ---
Author Organization [facility] Address [address] [place], [place] [address] Care Team Providers Care Tobacco Educator Name Role Phone Kwasi San MD Primary Care Provider [phone] Source Comments In the event this information is protected by the Federal Confidentiality of Alcohol and Drug AbusePatient Records regulations: The Federal rules restrict any use of the information to criminally investigate or prosecute any alcohol or drug abuse patient.[facility] Reason for Visit * Reason Comments Radiology XR Encounter Details Date Type Department Care Team (Late st Contact Info) Description 03/17/2023 Radiology General Radiology [address] [place] [address] Santino Gutierrez RT(R) Radiology XR Social History Tobacco Use Types Packs/Day Years [...] How often do you attend chur or methodist services? More than 4 times per year 10/03/2022 Do you belong to any clubs o r organizations such as latter-day groups, unions, fraternal or athletic groups, or [...] is lower risk 4 02/25/2023 Data from: https://www.neighborhoodatlas.medicine.[facility].edu/. 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 FALL SCREENING: Has the patient had 2 falls in the last year or 1 fall with injury or currently using an Ambulatory Assistive Device (Walker, Cane, Wheelchair, Crutches, etc.)? No PATIENT GENDER DATA: Female. status: : No status: NO. PATIENT RELEVANT IMPLANT DATA REVIEWED: Not Applicable RADIOLOGY DEPARTMENT: General X-ray: Exam(s) Completed: Chest X-Ray PERIPHERAL IV DATA: Not applicable SIGNED BY: RASHAUN Melo) March 17, 2023 3:26 PM documented in this encounter Plan of Treatment Upcoming Encounters Date Type Department Care Team (Latest Contact Info) Description 06/07/2025 2:00 PM EDT Office Visit [facility] Ophthalmology [address] [place], [place] [phone] Mike Smith MD [address] [place] [address] Diagnostics, Eye Tech And [address] [phone] *6-8 W, DFE/OCT PRN AVASTIN PER DHAR[place]CH 10/10/2025 2:00 PM EST Office Visit Family Medicine [place] [address] [place] [address] Kwasi San MD [address] [facility] [address] [place] [address] Return in about 5 months (around 09/25/2025) for MEDICARE WELLNESS. documented as of this encounter Visit Diagnoses Not on filedocumented in this encounter Care Teams Tobacco Educator Relationship Specialty Start Date End Date Kwasi San MD [address] [place] [address] PCP - General Family Medicine 10/16/14 documented as of this encounter
--- OUTSIDE RECORDS SUMMARY | 2025-06-05 08:27 | XMS_ITS | Patient Health Record ---
Author Organization [facility] Address [address] [place] [address] Care Team Providers Care Contact Center Engineer Name Role Phone Out of Town, Out of Town Primary Care Provider U coni Lashae Rios Unavailable TrevonBonnie yates Unavailable [phone] Allergies Allergen (clinical drug ingredient) Drug/Non Drug Allergy documented on EMR Reaction Allergy Type Onset Date Status clindamycin Clindamycin hives Drug Allergy Act manfred Penicillin hives Drug Allergy Active Results Component Value Reference Range Notes Urine Culture and Sensitivit y Reviewed date:10/17/2024 07:10:25 PM Interpretation:Abnormal Performing Lab:QPT, [facility]-[address], [address] [phone] Mike Finney MD Notes/Report: 0 Received Date: CULTURE, URINE, ROUTINE SEE NOTE E.coli INT MIRI AMOX/CLAVULANATE S <=2 AMP/SULBACTAM S <=2 CEFAZOLIN NR <=4 2 CEFEPIME S <=0.12 CEFTAZIDIME S <=1 CEFTRIAXONE S <=0.25 CIPROFLOXACIN I 0.5 GENTAMICIN S <=1 IMIPENEM S <=0.25 LEVOFLOXACIN I 1 MEROPENEM S <=0.25 NITROFURANTOIN S <=16 PIP/TAZOBACTAM S <=4 TRIMETHOPRIM/SULFA S <=20 S = Susceptible I = Intermediate R = Resistant NS = Not susceptible SDD = Susceptible Dose Dependent * = Not Tested NR = Not Reported NN = See Therapy Comments THERAPY COMMENTS Note 1: For infections other than uncomplicated UTI caused by E. coli, K. pneumoniae or P. mirabilis: Cefazolin is resistant if MIRI > or = 8 mcg/mL. (Distinguishing susceptible versus intermediate for isolates with MIRI < or = 4 mcg/mL requires additional testing.) Note 2: For uncomplicated UTI caused by E. coli, K. pneumoniae or P. mirabilis: Cefazolin is susceptible if MIRI <32 mcg/mL and predicts susceptible to the oral agents cefaclor, cefdinir, cefpodoxime, cefprozil, cefuroxime, cephalexin and loracarbef. CULTURE, URINE, ROUTINE Micro Number: [id number] Test Status: Final Specimen Source: Urine Specimen Quality: Adequate Result: Greater than 100,000 CFU/mL of Escherichia coli Urinalysis (IH) Reviewed date:10/14/2024 01:45:58 PM Interpretation:Abnormal Performing Lab: Notes/Report: Abnormal Blood Non-Hemolyzed 250 negative - c a. 250 Adebayo/ml Urobili 2 normal - 12 mg/dL Bili + negative - large Protein 30 negative - 500 mg/dL Nitrites neg negative - positive Ketone neg negative - large mg/dL Ascorbic Acid ++ trace - large Glucose neg negative - > 1000 mg/dL pH 5 5.0 - 9.0 Spec. Gr. 1.020 1.000 - 1.030 LEUK 75 negative - ca. 5 00 June/ml Urine Culture and Sensitivit y Reviewed date:09/11/2024 12:07:08 PM Interpretation:Negative Performing Lab:QPT, [facility]-[address], [address] [place], [place] [id number] Mike Finney MD Notes/Report: 0 Received Date: [id number] CULTURE, URINE, ROUTINE SEE NOTE CULTURE, URINE, ROUTINE Micro Number: [id number] Test Status: Final Specimen Source: Urine, clean catch Specimen Quality: Adequate Result: Mixed genital matty isolated. These superficial bacteria are not indicative of a urinary tract infection. No further organism identification is warranted on this specimen. If clinically indicated, recollect clean-catch, mid-stream urine and transfer immediately to Urine Culture Transport Tube. Urinalysis (IH) Reviewed date:09/09/2024 12:36:18 PM Interpretation:Abnormal Performing Lab: Notes/Report: Abnormal Blood Non-Hemolyzed 250 negative - c a. 250 Adebayo/ml Urobili 2 normal - 12 mg/dL Bili ++ negative - large Protein 100 negative - 500 mg/dL Nitrites negative negative - positive Ketone + negative - large mg/dL Ascorbic Acid negative trace - large Glucose negative negative - > 1000 mg/dL pH 5 5.0 - 9.0 Spec. Gr. 1.020 1.000 - 1.030 LEUK 500 negative - ca. 5 00 June/ml Reason For Referral No Information Medications Medication SIG (Take, Route, Frequency, Duration) Notes Start Date End Date Status Vitamin D3 25 MCG (1000 UT) 1 tab(s) ora lly once a day Active Lisinopril 30 MG 1 tab(s) orally once a day Active hydroCHLOROthiazide Active Multivitamin - 1 tablet Orally Once a day Active Immunizations Vaccine Route Administration Date Status Comme nts Pneumonia: Pneumovax 23 Unknown 03/09/2023 Refused Pneumonia: Prevnar 20 Unknown 07/24/2022 Refused Pneumonia: Prevnar 20 Unknown 11/08/2023 Refused z2022 FluBLOK Quad PFS (0.5m L Admin) 18 y/o & older Unknown 12/22/2022 Refused z2022 FluBLOK Quad PFS (0.5m L Admin) 18 y/o & older Unknown 01/28/2023 Refused z2022 FluBLOK Quad PFS (0.5m L Admin) 18 y/o & older Unknown 02/12/2023 Refused z2022 Fluzone Quad HIGH DOSE PFS (0.7 mL Admin) 65 y/o & older Unknown 10/28/2022 Refused z2022 Fluzone Quad PFS (0.5m L Admin) 6 months & older Unknown 07/24/2022 Refused z2022 Fluzone Quad PFS (0.5m L Admin) 6 months & older Unknown 09/12/2022 Refused z2022 Fluzone Quad PFS (0.5m L Admin) 6 months & older Unknown 03/09/2023 Refused z2023 Fluzone, 65 y/o & Olde r, Quad HIGH DOSE PFS (0.7 mL Admin) Unknown 11/08/2023 Refused Social History Tobacco Use: Social History Observation Description Date Details (start date - stop date) Never Smoker NA - NA Tobacco Control (Standard) Question Answer Notes Tobacco use: Nonsmoker Problems Problem Type SNOMED Code ICD Code Onset Dates Problem Status W/U Status Risk Notes Diagnosis Essential hypertension (43408729) Essential (primary) hypertension (I10) Active confirmed Problem BMI 30+ - obesity (401750758) BMI 32.0-32.9,adult (Z68.32) Inactive confirmed Problem Obese class II (702682930473077 ) BMI 35.0-35.9,adult (Z68.35) Inactive confirmed Finding Body mass index 30.00 to 34.99 (009203989674318 ) BMI 31.0-31.9,adult (Z68.31) Inactive confirmed Diagnosis Acute urinary tract infection (910442469) Acute UTI (N39.0) Active confirmed Finding Essential hypertension (43290169) Elevated blood pressure reading in office with diagnosis of hypertension (I10) Active confirmed Finding Body mass index 30+ - obesity (527908399) BMI 30.0-30.9,adult (Z68.30) Active confirmed Problem Hypertension (82772186) Hypertension (I10) 09/18/20 09 Active confirmed Problem Gastric ulcer (967680164) Gastric ulcer (K25.9) Active confirmed Problem Obesity (403068078) Obesity (BMI 30-39.9) (E66.9) Active confirmed Problem History of infectious disease (740797913) History of herpes zoster of eye (Z86.19) Active confirmed Problem History of macular degeneration (900960162689741 02) History of macular degeneration (Z86.69) Active confirmed Problem Overweight (939705328) Overweight (BMI 25.0-29.9) (E66.3) Active confirmed Vital Signs Temperature 97.9 degrees Fahrenheit 10/14/2024 Respiratory Rate 16 /min 10/14/2024 Blood pressure diastolic 82 mm Hg 10/14/2024 Height 64 in 10/14/2024 Blood pressure systolic 142 mm Hg 10/14/2024 Weight 162 lbs 10/14/2024 BMI 27.8 kg/m2 10/14/2024 Encounters Encounter Location Date Provider Diagnosis [address] [place] [address] 09/09/2024 Lashae Green Acute cystitis with hematuria N30.01 ; Overweight (BMI 25.0-29.9) E66.3 ; Influenza vaccination declined Z28.21 and Essential (primary) hypertension I10 [address] [place] [address] 10/14/2024 Bonnie Lester Acute UTI N39.0 and Dysuria R30.0 [address] [facility] [address] [place] [address] 10/17/2024 Lashae Green Assessments Encounter Date Diagnosis (ICD Code) Assessment Notes Treatment Notes Treatment Clinical Notes Section Notes 09/09/2024 Acute cystitis with hematuria (ICD-10 - N30.01) Urinary Tract Infection (UTI) in Women: Care Instructions material was published, Diet for a Healthy Bladder: Care Instructions material was published Complete the entire course of antibiotics as prescribed, even when symptoms have improved, to prevent a relapse of infection and the development of antibiotic resistance. Follow up in the clinic or with PCP in 4-5 days if no improvement or worsening of symptoms. Specimen will be sent to outside lab and patient will receive third republican bill from laboratory. Patient verbalized understanding and agrees to plan of care. Please avoid carbonated drinks and caffeine. They can irritate the bladder. Urinate often and try to empty the bladder each time. Avoid bubble baths as these cause irritation. For women: empty bladder after sexual relations, avoid using feminine hygiene products if possible as these can cause irritation. Call your PCP or return to the clinic if symptoms do not resolve in 3-5 days. Please seek immediate care at ER/UC if worsening symptoms or new symptoms including fever, nausea, vomiting, worsening urinary symptoms, chills, body aches, increased discomfort, groin or belly pain or discomfort, or back discomfort/pain just below rib cage (flank pain). For post-menopausal women: if symptoms do not resolve, consider follow up with SQUARE DANCE CALLER for evaluation of alternative causes that can mimic symptoms of UTI. URINE CX: ITINERANT TEACHER ASSISTANT notified TLC will notify patient/parent with urine cx results. Negative results will be published to patient portal. TLC will call with positive results and will treat with antibiotic if indicated and If not prescribed at time of visit. Please take all medications as prescribed including antibiotic through completion to decrease the risk of developing antibiotic resistance. Follow up with PCP if any further concerns or complaints. Follow up with UC/ED if any worsening symptoms including fever and flank discomfort. Patient agreeable and verbalized understanding. All questions answered. Patient has been explained that specimen will be sent to outside lab and agrees to outside third republican bill from laboratory. 09/09/2024 Overweight (BMI 25.0-29.9) (ICD-10 - E66.3) Learning About Healthy Weight material was published Continue healthy eating and exercise. May follow up with [employer] dietitians via a telehealth visit at [email or web address] to help with dietary changes to lower BMI. 10/14/2024 Dysuria (ICD-10 - R30.0) 10/14/2024 Acute UTI (ICD-10 - N39.0) Urinary Tract Infection (UTI) in Women: Care Instructions material was published. Medications as discussed. Increase fluids. Follow up with PCP or clinic in 2-3 days if not improved. Will only call with culture results if anitbiotics need to be changed. 09/09/2024 Influenza vaccination declined (ICD-10 - Z28.21) The CDC recommends influenza (flu) vaccine every fall. [facility] provides influenza vaccination for all ages. You can schedule a vaccination only appointment at your convenience. 09/09/2024 Essential (primary) hypertension (ICD-10 - I10) Regularly follow up with the healthcare provider who manages your high blood pressure. Monitor your blood pressure as it should be less than 120/80. 09/09/2024 Other Visit summary given to and discussed with patient and/or parent who verbalizes understanding and agreement with plan of care. Thank you for your visit. Please look for the satisfaction survey that you will receive via email. We look forward to receiving your feedback regarding your experience at [facility]. NOTE to Provider of Record: MIPS recommendations for 1st Hypertensive Reading in the past 12 months (>/= 130 systolic or >/= 80 diastolic): 1) Recommend to rescreen blood pressure in less than 4 weeks AND 2) Provide and document recommendations for non-pharmacologic interventions in the Preventative Medicine window, which may include Lifestyle recommendations, Physical Activity recommendations, Weight Reduction Recommendations, or Dietary Recommendations OR Provide and document a referral to alternate care provider 10/14/2024 Other Nitrofurantoin Macrocrystals/Throckmorton hydrate Oral Capsule 25 mg/75 mg (NITROFURANTOIN/NI TROFURANTOIN MACROCRYSTALS - ORAL) material was published, Phenazopyridine Oral Tablet (PHENAZOPYRIDINE - ORAL) material was published Plan Of Treatment No Information Insurance Providers Payer Name Payer Address Payer Phone Subscriber Number Group Number Insured Name Patient Relationship to Insured Coverage Start Date Coverage End Date [facility] [address] [place] [address] [id number] HARSHABESSY Prieto Self - patient is the insured Medical (General) History Medical History History ICD Code Hypertension I10 Gastric ulcer K25.9 History of herpes zoster of eye Z86.19 History of macular degeneration Z86.69 Surgical History Surgery Date(Month/Year) sinus surgery 09/2023 cataract Inguinal hernia Repair 05/2016 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
--- OUTSIDE RECORDS SUMMARY | 2025-06-05 08:28 | XMS_ITS | Encounter Summary ---
Author Organization [facility] Address [address] [place] [address] Care Team Providers Care Measurement And Verification Engineer Name Role Phone Lashae Schmid MD Primary Care Provider [phone] Kwasi San MD Primary Care Provider [phone] Source Comments In the event this information is protected by the Federal Confidentiality of Alcohol and Drug AbusePatient Records regulations: The Federal rules restrict any use of the information to criminally investigate or prosecute any alcohol or drug abuse patient.[facility] Encounter Details Date Type Department Care Team (Late st Contact Info) Description 08/03/2013 Patient Msg Medical Records [address] [place] [address] Provider, [facility]cf RE: Request an Appointment Social History Tobacco Use Types Packs/Day [...] 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 documented as of this encounter Plan of Treatment Upcoming Encounters Date Type Department Care Team (Latest Contact Info) Description 06/07/2025 2:00 PM EDT Office Visit OPHT Ophthalmology [address] [facility] [place] [address] Mike Smith MD [address] [place] [address] Diagnostics, Eye Tech And [address] [address] *6-8 W, DFE/OCT PRN AVASTIN PER BABIUCH 10/10/2025 2:00 PM EST Office Visit Family Medicine [place] [address] [facility] [place] [address] Kwasi San MD [address] [place] [address] Return in about 5 months (around 09/25/2025) for MEDICARE WELLNESS. documented as of this encounter Visit Diagnoses Not on filedocumented in this encounter Care Teams Measurement And Verification Engineer Relationship Specialty Start [place] [address] [place] [address] [place] [address] PCP - General Internal Medicine 02/04/13 10/15/14 [place] [address] [place] [address] [address] [place] [address] PCP - General Family Medicine 10/16/14 documented as of this encounter
--- OUTSIDE RECORDS SUMMARY | 2025-06-05 08:28 | XMS_ITS | Encounter Summary ---
Author Organization [facility] Address [address] [place], [place] [id number] Care Team Providers Care Fertilizer Supervisor Name Role Phone Kwasi San MD Primary Care Provider [phone] Source Comments In the event this information is protected by the Federal Confidentiality of Alcohol and Drug AbusePatient Records regulations: The Federal rules restrict any use of the information to criminally investigate or prosecute any alcohol or drug abuse patient.[facility] Encounter Details Date Type Department Care Team (Late st Contact Info) Description 02/22/2019 Patient Msg Family Medicine [place] [address] [facility] [place] [address] Nurse Louisa Cummings [facility] [address] [facility] [address] [place] [phone] RE: Appointment Cancellation Request Social History Tobacco Use [...] 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 Answer Date of Assessment Author No 02/02/2018 1:56 PM EDT Mary Miles RN * Are you blind or do you have serious difficulty seeing, even when wearing glasses? Answer Date of Assessment Author No 02/02/2018 1:56 PM SAMT Mary Miles RN * Do you have serious difficulty walking or climbing stairs? Answer Date of Assessment Author No 02/02/2018 1:56 PM SAMT Mary Miles RN * Do you have difficulty dressing or bathing? Answer Date of Assessment Author No 02/02/2018 1:56 PM SAMT Mary Miles RN * Because of a physical, mental, or emotional condition, do you have difficulty doing errands alone such as visiting a doctor's office or shopping? Answer Date of Assessment Author No 02/02/2018 1:56 PM SAMT Mary Miles RN documented as of this encounter Mental Status * Because of a physical, mental, or emotional condition, do you have serious difficulty concentrating, remembering, or making decisions? Answer Entry Date Author No 02/02/2018 1:56 PM Mary Bateman RN documented in this encounter Plan of Treatment Upcoming Encounters Date Type Department Care Team (Latest Contact Info) Description 06/07/2025 2:00 PM EDT Office Visit OPHT Ophthalmology [address] [place] [address] Mike Smith MD [address] [place] [address] Diagnostics, Eye Tech [facility] [address] [place] [address] *6-8 W, DFE/OCT PRN AVASTIN PER ISMAEL 10/10/2025 2:00 PM EST Office Visit Family Medicine [place] [address] [facility] [place] [address] Kwasi San MD [address] [facility] [address] [place] [address] Return in about 5 months (around 09/25/2025) for MEDICARE WELLNESS. documented as of this encounter Visit Diagnoses Not on filedocumented in this encounter Care Teams Fertilizer Supervisor Relationship Specialty Start Date End Date Kwasi San MD [address] [facility] [address] [facility] [place] [address] PCP - General Family Medicine 10/16/14 documented as of this encounter
--- OUTSIDE RECORDS SUMMARY | 2025-06-05 08:28 | XMS_ITS | Encounter Summary ---
Author Organization [facility] Address [facility] [place] [address] Care Team Providers Care Construction Grip Name Role Phone Kwasi San MD Primary Care Provider [phone] Source Comments In the event this information is protected by the Federal Confidentiality of Alcohol and Drug AbusePatient Records regulations: The Federal rules restrict any use of the information to criminally investigate or prosecute any alcohol or drug abuse patient.[facility] Encounter Details Date Type Department Care Team (Late st Contact Info) Description 11/12/2022 Patient Msg Gastroenterology [address] [phone] [place] [address] [place] [address] Biopsy and polyp result Social History Tobacco Use Types Packs/Day Years Used Date Smoking Tobacco: Never Smokeless Tobacco: Never Alcohol Use Standard Drinks/Week Comments Not Currently 0 (1 standard drink = 0.6 oz [...] often do you attend chur ch or spiritism services? More than 4 times per year 10/03/2022 Do you belong to any clubs o r organizations such as mormonism groups, unions, fraternal or athletic groups, or [...] Answer Date Recorded PHQ-2 score 0 12/04/2020 [facility] Occupat ional [facility] - Occupational Stress Questionnaire Answer Date Recorded [...] place to sleep or slept in a prison (including now)? No 10/03/2022 Area Deprivation Index Answer Date Wang rded National Score (1-100), lower number is lower ri sk 54 11/04/2022 State Score (1-10), lower number is lower risk N ot on file 11/04/2022 Data from: https://www.neighborhoodatlas.medicine.[facility].edu/. 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 [...] Mary Bateman RN * Do you have serious difficulty [...] Entry Date Author No 02/02/2018 1:56 PM SAMT Mary Miles RN documented in this encounter Plan of Treatment Upcoming Encounters Date Type Department Care Team (Latest Contact Info) Description 06/07/2025 2:00 PM EDT Office Visit OPHT Ophthalmology [address] [place] [address] Mike Smith MD [address] [place] [address] Diagnostics, Eye Tech And [address] [address] *6-8 W, DFE/OCT PRN AVASTIN PER BABIUCH 10/10/2025 2:00 PM EST Office Visit Family Medicine [place] [address] [place] [address] Kwasi San MD [address] [facility] [address] [place] [address] Return in about 5 months (around 09/25/2025) for MEDICARE WELLNESS. documented as of this encounter Visit Diagnoses Not on filedocumented in this encounter Care Teams Construction Grip Relationship Specialty Start Date End Date Kwasi San MD [address] [facility] [address] [place] [address] PCP - General Family Medicine 10/16/14 documented as of this encounter
--- OUTSIDE RECORDS SUMMARY | 2025-06-05 08:28 | XMS_ITS | Encounter Summary ---
Author Organization [facility] Address [address] [place], [place] [phone] Care Team Providers Care Spring Assembler Supervisor Name Role Phone Kwasi San MD Primary Care Provider [phone] Source Comments In the event this information is protected by the Federal Confidentiality of Alcohol and Drug AbusePatient Records regulations: The Federal rules restrict any use of the information to criminally investigate or prosecute any alcohol or drug abuse patient.[facility] Encounter Details Date Type Department Care Team (Late st Contact Info) Description 06/17/2022 Patient Msg Family Medicine [place] [address] [facility] [address] [place], [place] [phone] Provider, Mary Jane We Miss You! Social History Tobacco Use Types Packs/Day Years [...] How often do you attend chur or rastafari services? More than 4 times per year 12/04/2020 Do you belong to any clubs o r organizations such as rastafarian groups, unions, fraternal or athletic groups, or [...] Answer Date Recorded PHQ-2 score 0 12/04/2020 [facility]at [facility] - Occupational [...] place to sleep or slept in a usp (including now)? No 12/04/2020 Area Deprivation Index Answer Date Wang rded National Score (1-100), lower number is lower ri sk Not on file 09/23/2020 State Score (1-10), lower number is lower risk N ot on file 09/23/2020 Data from: https://www.neighborhoodatlas.medicine.[facility].edu/. 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 documented as of this encounter Visit Diagnoses Not on filedocumented in this encounter Care Teams Spring Assembler Supervisor Relationship Specialty Start Date End Date Kwasi San MD [address] [facility] [address] [place] [address] PCP - General Family Medicine 10/16/14 documented as of this encounter
--- OUTSIDE RECORDS SUMMARY | 2025-06-05 08:28 | XMS_ITS | Encounter Summary ---
Author Organization [facility] Address [address] [place], [place] [id number] Care Team Providers Care Beverage Server Name Role Phone Kwasi San MD Primary Care Provider [phone] Source Comments In the event this information is protected by the Federal Confidentiality of Alcohol and Drug AbusePatient Records regulations: The Federal rules restrict any use of the information to criminally investigate or prosecute any alcohol or drug abuse patient.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 Answer Date of Assessment Author No 02/02/2018 1:56 PM Mary Bateman RN documented as of this encounter Mental [...] PM EDT Office Visit OPHT Ophthalmology [address] [place] [address] Mike Smith MD [address] [place] [address] Diagnostics, Eye Tech And [address] [place] [address] *6-8 W, DFE/OCT PRN AVASTIN PER ISMAEL 10/10/2025 2:00 PM EST Office Visit Family Medicine [place] [address] [place] [address] Kwasi San MD [address] [place] [address] Return in about 5 months (around 09/25/2025) for MEDICARE WELLNESS. documented as of this encounter Visit Diagnoses Not on filedocumented in this encounter Care Teams Beverage Server Relationship Specialty Start Date End Date Kwasi San MD [address] [place] [address] PCP - General Family Medicine 10/16/14 documented as of this encounter
--- OUTSIDE RECORDS SUMMARY | 2025-06-05 08:28 | XMS_ITS | Encounter Summary ---
Author Organization [facility] Address [address] [place] [address] Care Team Providers Care Smoking Pipe Liner Name Role Phone Kwasi San MD Primary Care Provider [phone] Source Comments In the event this information is protected by the Federal Confidentiality of Alcohol and Drug AbusePatient Records regulations: The Federal rules restrict any use of the information to criminally investigate or prosecute any alcohol or drug abuse patient.[facility] Encounter Details Date Type Department Care Team (Late st Contact Info) Description 10/15/2022 Get Medical Advice Gastroenterology [address] [id number] Marva Fung APRN.[facility] [address] [place] [address] Prilosec Social History Tobacco Use Types Packs/Day Years [...] often do you attend chur ch or baptist services? More than 4 times per year 10/03/2022 Do you belong to any clubs o r organizations such as gnosticism groups, unions, fraternal or athletic groups, or [...] Answer Date Recorded PHQ-2 score 0 12/04/2020 [facility] - [...] place to sleep or slept in a longterm (including now)? No 10/03/2022 Area Deprivation Index Answer Date Wang rded National Score (1-100), lower number is lower ri sk Not on file 09/23/2020 State Score (1-10), lower number is lower risk N ot on file 09/23/2020 Data from: https://www.neighborhoodatlas.medicine.[facility].edu/. 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 [facility] [address] [place] [address] Return in about 5 months (around 09/25/2025) for MEDICARE WELLNESS. documented as of this encounter Visit Diagnoses Not on filedocumented in this encounter Care Teams Smoking Pipe Liner Relationship Specialty Start Date End Date Kwasi San MD [address] [facility] [address] [place] [address] PCP - General Family Medicine 10/16/14 documented as of this encounter
--- OUTSIDE RECORDS SUMMARY | 2025-06-05 08:28 | XMS_ITS | Encounter Summary ---
Author Organization [facility] Address [address] [place], [place] [id number] Care Team Providers Care Rn Testing Name Role Phone Kwasi San MD Primary Care Provider [phone] Source Comments In the event this information is protected by the Federal Confidentiality of Alcohol and Drug AbusePatient Records regulations: The Federal rules restrict any use of the information to criminally investigate or prosecute any alcohol or drug abuse patient.[facility] Encounter Details Date Type Department Care Team (Late st Contact Info) Description 04/29/2017 Patient Msg Family Medicine [place] [address] [facility] [place], [place] [phone] Kwasi San MD [address] [facility] [address] [place] [address] [place], [place] [phone] RE: Request an Appointment Social History Tobacco [...] 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 Answer Date of Assessment Author No 05/11/2015 11:38 AM EDT Lavon schofield Zoe * Are you blind or do you have serious difficulty seeing, even when wearing glasses? Answer Date of Assessment Author No 05/11/2015 11:38 AM EDT Lavon schofield Zoe * Do you have serious difficulty walking or climbing stairs? Answer Date of Assessment Author No 05/11/2015 11:38 AM EDT Lavon schofield Zoe * Do you have difficulty dressing or bathing? Answer Date of Assessment Author No 05/11/2015 11:38 AM EDT Lavon schofield Zoe * Because of a physical, mental, or emotional condition, do you have difficulty doing errands alone such as visiting a doctor's office or shopping? Answer Date of Assessment Author No 05/11/2015 11:38 AM SAMT Zoe Saucedo documented as of this encounter Mental Status * Because of a physical, mental, or emotional condition, do you have serious difficulty concentrating, remembering, or making decisions? Answer Entry Date Author No 05/11/2015 11:38 AM SAMT Zoe Saucedo documented in this encounter Plan of Treatment Upcoming Encounters Date Type Department Care Team (Latest Contact Info) Description 06/07/2025 2:00 PM EDT Office Visit OPHT Ophthalmology [address] [place], [place] [phone] Mike Smith MD [address] [place] [address] Diagnostics, Eye Tech [facility] [address] [place] [address] *6-8 W, DFE/OCT PRN AVASTIN PER ISMAEL 10/10/2025 2:00 PM EST Office Visit Family Medicine [place] [address] [facility] [place] [address] Kwasi San MD [address] [facility] [address] [place] M16 [facility] [place] [address] Return in about 5 months (around 09/25/2025) for MEDICARE WELLNESS. documented as of this encounter Visit Diagnoses Not on filedocumented in this encounter Care Teams Rn Testing Relationship Specialty Start Date End Date Kwasi San MD [address] [place] [address] PCP - General Family Medicine 10/16/14 documented as of this encounter
--- OUTSIDE RECORDS SUMMARY | 2025-06-05 08:28 | XMS_ITS | Encounter Summary ---
Author Organization [facility] Address [address] [place], [place] [phone] Care Team Providers Care Presales Consultant Name Role Phone Kwasi San MD Primary Care Provider [phone] Source Comments In the event this information is protected by the Federal Confidentiality of Alcohol and Drug AbusePatient Records regulations: The Federal rules restrict any use of the information to criminally investigate or prosecute any alcohol or drug abuse patient.[facility] Encounter Details Date Type Department Care Team (Late st Contact Info) Description 02/09/2019 Patient Msg Family Medicine [place] [address] [facility] [place] [address] Nurse Louisa Cummings [facility] [address] [facility] [place] [id number] RE: Appointment Cancellation Request Social History Tobacco [...] 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 documented as of this encounter Visit Diagnoses Not on filedocumented in this encounter Care Teams Presales Consultant Relationship Specialty Start Date End Date Kwasi San MD [address] [facility] [address] [place] M[address] [facility] [place] [address] PCP - General Family Medicine 10/16/14 documented as of this encounter
--- OUTSIDE RECORDS SUMMARY | 2025-06-05 08:28 | XMS_ITS | Encounter Summary ---
Author Organization [facility] Address [address] [place], [place] [phone] Care Team Providers Care Job Service Consultant Name Role Phone Kwasi San MD Primary Care Provider [phone] Source Comments In the event this information is protected by the Federal Confidentiality of Alcohol and Drug AbusePatient Records regulations: The Federal rules restrict any use of the information to criminally investigate or prosecute any alcohol or drug abuse patient.[facility] Encounter Details Date Type Department Care Team (Late st Contact Info) Description 11/25/2016 Patient Msg Family Medicine [place] [address] [facility] [place], [place] [phone] Kwasi San MD [address] [facility] [address] [address] [place], [place] [phone] RE: Request an Appointment Social History Tobacco [...] 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 documented as of this encounter Visit Diagnoses Not on filedocumented in this encounter Care Teams Job Service Consultant Relationship Specialty Start Date End Date Kwasi San MD [address] [place] [address] PCP - General Family Medicine 10/16/14 documented as of this encounter
--- OUTSIDE RECORDS SUMMARY | 2025-06-05 08:28 | XMS_ITS | Encounter Summary ---
Author Organization [facility] Address [facility] [place] [address] Care Team Providers Care Public Health Technician Name Role Phone Pcp, No Primary Care Provider Jigar Groves MD Primary Care Provider [phone] Pcp, No Primary Care Provider Lashae Jin MD Primary Care Provider Kwasi San MD Primary Care Provider [phone] Source Comments In the event this information is protected by the Federal Confidentiality of Alcohol and Drug AbusePatient Records regulations: The Federal rules restrict any use of the information to criminally investigate or prosecute any alcohol or drug abuse patient.[facility] Encounter Details Date Type Department Care Team (Late st Contact Info) Description 12/29/2012 Patient Msg Medical Records [address] [place] [address] Provider, Ccf [facility] Medical Procedure Social History Tobacco Use Types Packs/Day Years [...] 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 documented as of this encounter Visit Diagnoses Not on filedocumented in this encounter Care Teams Public Health Technician Relationship Specialty Start Date End Date Pcp, No PCP - General 12/10/12 01/19/13 Jigar Calero MD PCP - General Internal Medicine 01/20/13 01/26/13 Pcp, No PCP - General 01/27/13 02/03/13 Lashae Schmid MD [facility] [place] [address] PCP - General Internal Medicine 02/04/13 10/15/14 Kwasi San MD [address] [place], [place] [phone] PCP - General Family Medicine 10/16/14 documented as of this encounter
--- OUTSIDE RECORDS SUMMARY | 2025-06-05 08:28 | XMS_ITS | Encounter Summary ---
Author Organization [facility] Address [address] [place], [place] [phone] Care Team Providers Care Senior Peoplesoft Developer Name Role Phone Kwasi San MD Primary Care Provider [phone] Source Comments In the event this information is protected by the Federal Confidentiality of Alcohol and Drug AbusePatient Records regulations: The Federal rules restrict any use of the information to criminally investigate or prosecute any alcohol or drug abuse patient.[facility] Encounter Details Date Type Department Care Team (Late st Contact Info) Description 11/04/2022 Patient Msg Gastroenterology [address] [place] [address] Provider, Ccf Colonoscopy Prep Instructions Social History Tobacco Use Types Packs/Day Years [...] How often do you attend chur or scientologist services? More than 4 times per year 10/03/2022 Do you belong to any clubs o r organizations such as methodist groups, unions, fraternal or athletic groups, or [...] place to sleep or slept in a fci (including now)? No 10/03/2022 Area Deprivation Index Answer Date Wang rded National Score (1-100), lower number is lower ri sk 54 11/04/2022 State Score (1-10), lower number is lower risk N ot on file 11/04/2022 Data from: https://www.neighborhoodatlas.medicine.[facility].edu/. 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 documented as of this encounter Visit Diagnoses Not on filedocumented in this encounter Care Teams Senior Peoplesoft Developer Relationship Specialty Start Date End Date Kwasi San MD [address] [facility] [address] [place] [address] PCP - General Family Medicine 10/16/14 documented as of this encounter
--- OUTSIDE RECORDS SUMMARY | 2025-06-05 08:28 | XMS_ITS | Encounter Summary ---
Author Organization [facility] Address [address] [place], [place] [address] Care Team Providers Care Development Disability Specialist Name Role Phone Kwasi San MD Primary Care Provider [phone] Source Comments In the event this information is protected by the Federal Confidentiality of Alcohol and Drug AbusePatient Records regulations: The Federal rules restrict any use of the information to criminally investigate or prosecute any alcohol or drug abuse patient.[facility] Encounter Details Date Type Department Care Team (Late st Contact Info) Description 02/23/2019 Patient Msg Family Medicine [place] 5700 [facility] [place] [address] Nurse Louisa Cummings [facility] [address] [facility] [place] [phone] RE: Appointment Cancellation Request Social History Tobacco [...] 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 documented as of this encounter Visit Diagnoses Not on filedocumented in this encounter Care Teams Development Disability Specialist Relationship Specialty Start Date End Date Kwasi San MD [address] [facility] [address] [place] [address] [facility] [place] [address] PCP - General Family Medicine 10/16/14 documented as of this encounter
--- OUTSIDE RECORDS SUMMARY | 2025-06-05 08:28 | XMS_ITS | Encounter Summary ---
Author Organization [facility] Address [address] [place] [address] Care Team Providers Care Engineering And Operations Director Name Role Phone Lashae Schmid MD Primary Care Provider [phone] Kwasi San MD Primary Care Provider [phone] Source Comments In the event this information is protected by the Federal Confidentiality of Alcohol and Drug AbusePatient Records regulations: The Federal rules restrict any use of the information to criminally investigate or prosecute any alcohol or drug abuse patient.[facility] Encounter Details Date Type Department Care Team (Late st Contact Info) Description 08/14/2014 Patient Msg Medical Records [address] [place] [address] Provider, Ccf RE: Request an Appointment Social [...] 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 encounter Plan of Treatment Upcoming Encounters Date Type Department Care Team (Latest Contact Info) Description 06/07/2025 2:00 PM EDT Office Visit OPHT Ophthalmology 57[address] [facility] [place] [address] Mike Smith MD [address] [place] [address] Diagnostics, Eye Tech And [address] [address] *6-8 W, DFE/OCT PRN AVASTIN PER BABIUCH 10/10/2025 2:00 PM EST Office Visit Family Medicine [place] [address] [facility] [place] [address] Kwasi San MD [address] [facility] [address] [place] [address] Return in about 5 months (around 09/25/2025) for MEDICARE WELLNESS. documented as of this encounter Visit Diagnoses Not on filedocumented in this encounter Care Teams Engineering And Operations Director Relationship Specialty [place] [address] [place] [address] [place] [address] PCP - General Internal Medicine 02/04/13 10/15/14 [place] [address] [place] [address] [address] [place] [address] PCP - General Family Medicine 10/16/14 documented as of this encounter
--- OUTSIDE RECORDS SUMMARY | 2025-06-05 08:28 | XMS_ITS | Encounter Summary ---
Author Organization [facility] Address [address] [place], [place] [phone] Care Team Providers Care Nursing Education Specialist Name Role Phone Kwasi San MD Primary Care Provider [phone] Source Comments In the event this information is protected by the Federal Confidentiality of Alcohol and Drug AbusePatient Records regulations: The Federal rules restrict any use of the information to criminally investigate or prosecute any alcohol or drug abuse patient.[facility] Encounter Details Date Type Department Care Team (Late st Contact Info) Description 08/18/2018 Patient Msg General Surgery [address] [place] [address] Provider, Ccf Dr. 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 documented as of this encounter Visit Diagnoses Not on filedocumented in this encounter Care Teams Nursing Education Specialist Relationship Specialty Start Date End Date Kwasi San MD [address] [place] [address] PCP - General Family Medicine 10/16/14 documented as of this encounter
--- OUTSIDE RECORDS SUMMARY | 2025-06-05 08:28 | XMS_ITS | Encounter Summary ---
Author Organization [facility] Address [address] [place], [place] [address] Care Team Providers Care Power Technician Name Role Phone Kwasi San MD Primary Care Provider [phone] Source Comments In the event this information is protected by the Federal Confidentiality of Alcohol and Drug AbusePatient Records regulations: The Federal rules restrict any use of the information to criminally investigate or prosecute any alcohol or drug abuse patient.[facility] Encounter Details Date Type Department Care Team (Late st Contact Info) Description 12/20/2019 Patient Msg Family Medicine [place] [address] [facility] [place], [place] [phone] Kwasi San MD [address] [facility] [address] [place], [place] [phone] RE: Request an Appointment Social History Tobacco [...] 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 documented as of this encounter Visit Diagnoses Not on filedocumented in this encounter Care Teams Power Technician Relationship Specialty Start Date End Date Kwasi San MD [address] M[address] [facility] [place] [address] PCP - General Family Medicine 10/16/14 documented as of this encounter
--- OUTSIDE RECORDS SUMMARY | 2025-06-05 08:28 | XMS_ITS | Encounter Summary ---
Author Organization [facility] Address [address] [place], [place] [id number] Care Team Providers Care Student Services Representative Name Role Phone Kwasi San MD Primary Care Provider [phone] Source Comments In the event this information is protected by the Federal Confidentiality of Alcohol and Drug AbusePatient Records regulations: The Federal rules restrict any use of the information to criminally investigate or prosecute any alcohol or drug abuse patient.[facility] Encounter Details Date Type Department Care Team (Late st Contact Info) Description 11/08/2018 Patient Msg Family Medicine [place] [address] [facility] [place], [place] [id number] Kwasi San MD [address] [facility] [address] [place], [place] [id number] RE: Appointment Cancellation Request Social History Tobacco [...] 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 documented as of this encounter Visit Diagnoses Not on filedocumented in this encounter Care Teams Student Services Representative Relationship Specialty Start Date End Date Kwasi San MD [address] [place] [address] PCP - General Family Medicine 10/16/14 documented as of this encounter
--- OUTSIDE RECORDS SUMMARY | 2025-06-05 08:28 | XMS_ITS | Encounter Summary ---
Author Organization [facility] Address [address] [place] [address] Care Team Providers Care Golf Shoe Spike Assembler Name Role Phone Kwasi San MD Primary Care Provider [phone] Source Comments In the event this information is protected by the Federal Confidentiality of Alcohol and Drug AbusePatient Records regulations: The Federal rules restrict any use of the information to criminally investigate or prosecute any alcohol or drug abuse patient.[facility] Encounter Details Date Type Department Care Team (Late st Contact Info) Description 10/17/2022 [place] [address] Provider, Ccf Please Schedule Colonoscopy/Endoscopy Appointment Social History Tobacco Use Types Packs/Day [...] often do you attend chur ch or yazidism services? More than 4 times per year 10/03/2022 Do you belong to any clubs o r organizations such as quaker groups, unions, fraternal or athletic groups, or [...] place to sleep or slept in a skilled nursing (including now)? No 10/03/2022 Area Deprivation Index Answer Date Wang rded National Score (1-100), lower number is lower ri sk Not on file 09/23/2020 State Score (1-10), lower number is lower risk N ot on file 09/23/2020 Data from: https://www.neighborhoodatlas.medicine.[facility].edu/. 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 documented as of this encounter Visit Diagnoses Not on filedocumented in this encounter Care Teams Golf Shoe Spike Assembler Relationship Specialty Start Date End Date Kwasi San MD [address] [facility] [address] [place] [address] PCP - General Family Medicine 10/16/14 documented as of this encounter
--- OUTSIDE RECORDS SUMMARY | 2025-06-05 08:28 | XMS_ITS | Encounter Summary ---
Author Organization [facility] Address [address] [place] [address] Care Team Providers Care Hr Administrator Name Role Phone Kwasi San MD Primary Care Provider [phone] Source Comments In the event this information is protected by the Federal Confidentiality of Alcohol and Drug AbusePatient Records regulations: The Federal rules restrict any use of the information to criminally investigate or prosecute any alcohol or drug abuse patient.[facility] Encounter Details Date Type Department Care Team (Late st Contact Info) Description 11/03/2016 Patient Msg Medical Records [address] [place] [address] Provider, Ccf [facility] Procedure Social [...] 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 Answer Date of Assessment Author No 05/11/2015 11:38 AM EDT Lavon schofield, Zoe * Are you blind or do you have serious difficulty seeing, even when wearing glasses? Answer Date of Assessment Author No 05/11/2015 11:38 AM EDT Lavon Brandyn schofield Zoe * Do you have serious difficulty walking or climbing stairs? Answer Date of Assessment Author No 05/11/2015 11:38 AM EDT Lavon Brandyn kanwal, Zoe * Do you have difficulty dressing or bathing? Answer Date of Assessment Author No 05/11/2015 11:38 AM EDT Lavon schofield Zoe * Because of a physical, mental, or emotional condition, do you have difficulty doing errands alone such as visiting a doctor's office or shopping? Answer Date of Assessment Author No 05/11/2015 11:38 AM EDT Lavon M kanwal Zoe documented as of this encounter Mental Status * Because of a physical, mental, or emotional condition, do you have serious difficulty concentrating, remembering, or making decisions? Answer Entry Date Author No 05/11/2015 11:38 AM EDT Lavon M kanwal Zoe documented in this encounter Plan of Treatment Upcoming Encounters Date Type Department Care Team (Latest Contact Info) Description 06/07/2025 2:00 PM EDT Office Visit OPHT Ophthalmology [address] [place] [address] Mike Smith MD [address] [place] [address] Diagnostics, Eye Tech And [address] [place] [address] *6-8 W, DFE/OCT PRN AVASTIN PER ISMAEL 10/10/2025 2:00 PM EST Office Visit Family Medicine [place] [address] [place] [address] Kwasi San MD [address] [place] [address] Return in about 5 months (around 09/25/2025) for MEDICARE WELLNESS. documented as of this encounter Visit Diagnoses Not on filedocumented in this encounter Care Teams Hr Administrator Relationship Specialty Start Date End Date Kwasi San MD [address] [place] [address] PCP - General Family Medicine 10/16/14 documented as of this encounter
--- OUTSIDE RECORDS SUMMARY | 2025-06-05 08:28 | XMS_ITS | Encounter Summary ---
Author Organization [facility] Address [address] [place], [place] [id number] Care Team Providers Care Printing Sales Representative Name Role Phone Kwasi San MD Primary Care Provider [phone] Source Comments In the event this information is protected by the Federal Confidentiality of Alcohol and Drug AbusePatient Records regulations: The Federal rules restrict any use of the information to criminally investigate or prosecute any alcohol or drug abuse patient.[facility] Encounter Details Date Type Department Care Team (Late st Contact Info) Description 12/02/2017 Patient Msg Orthopaedics [address] [place], [place] [phone] Amberly Sarabia DPM [address] [facility] [place] [address] RE: Appointment Cancellation Request Social History Tobacco [...] 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 documented as of this encounter Visit Diagnoses Not on filedocumented in this encounter Care Teams Printing Sales Representative Relationship Specialty Start Date End Date Kwasi San MD [address] [facility] [place] [address] PCP - General Family Medicine 10/16/14 documented as of this encounter
--- OUTSIDE RECORDS SUMMARY | 2025-06-05 08:28 | XMS_ITS | Encounter Summary ---
Author Organization [facility] Address [address] [place], [place] [phone] Care Team Providers Care Oil And Gas Drafter Name Role Phone Kwasi San MD Primary Care Provider [phone] Source Comments In the event this information is protected by the Federal Confidentiality of Alcohol and Drug AbusePatient Records regulations: The Federal rules restrict any use of the information to criminally investigate or prosecute any alcohol or drug abuse patient.[facility] Encounter Details Date Type Department Care Team (Late st Contact Info) Description 06/18/2021 Patient Msg Family Medicine [place] [address] [facility] [address] [place] [phone] Provider, Ccf Appointment Social History Tobacco Use [...] 12/04/2020 How often do you attend chur ch or confucianism services? More than 4 times per year [...] Answer Date Recorded PHQ-2 score 0 12/04/2020 [facility] Occupational Stress Questionnaire Answer [...] place to sleep or slept in a fdc (including now)? No 12/04/2020 Area Deprivation Index Answer Date Wang rded National Score (1-100), lower number is lower ri sk Not on file 09/23/2020 State Score (1-10), lower number is lower risk N ot on file 09/23/2020 Data from: https://www.neighborhoodatlas.medicine.[facility].edu/. 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 No / Unsure 06/12/2021 4:44 PM EDT documented as of this encounter Functional Status * Are you deaf or do you have serious difficulty hearing? Answer Date of Assessment Author No 02/02/2018 1:56 PM EDT Mary Miles, RN * Are you blind or do [...] PM EDT Office Visit OPHT Ophthalmology [address] [facility] [place] [address] Mike Smith MD [address] [place] [address] Diagnostics, Eye Tech And [address] [address] *6-8 W, DFE/OCT PRN AVASTIN PER BABIUCH 10/10/2025 2:00 PM EST Office Visit Family Medicine [place] [address] [facility] [place] [address] Kwasi San MD [address] [facility] [place] [place] [place] [address] Return in about 5 months (around 09/25/2025) for MEDICARE WELLNESS. documented as of this encounter Visit Diagnoses Not on filedocumented in this encounter Care Teams Oil And Gas Drafter Relationship Specialty Start Date End Date Kwasi San MD [address] [facility] [address] [place] [address] PCP - General Family Medicine 10/16/14 documented as of this encounter
--- OUTSIDE RECORDS SUMMARY | 2025-06-05 08:28 | XMS_ITS | Encounter Summary ---
Author Organization [facility] Address [address] [place] [address] Care Team Providers Care Revenue Specialist Name Role Phone Kwasi San MD Primary Care Provider [phone] Source Comments In the event this information is protected by the Federal Confidentiality of Alcohol and Drug AbusePatient Records regulations: The Federal rules restrict any use of the information to criminally investigate or prosecute any alcohol or drug abuse patient.[facility] Encounter Details Date Type Department Care Team (Late st Contact Info) Description 12/04/2015 Patient Msg General Surgery [address] [facility] [address] [place], [place] [phone] Levi Faulkner III, MD [address] 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 documented as of this encounter Visit Diagnoses Not on filedocumented in this encounter Care Teams Revenue Specialist Relationship Specialty Start Date End Date Kwasi San MD [address] [facility] [place] [address] PCP - General Family Medicine 10/16/14 documented as of this encounter
[2025-06-05] MEDS: LIDOCAINE HCL 1%-EPINEPHRINE 1:100,000 20 ML MDV 10 ML INJ (09:03)
--- NOTE | 2025-06-05 09:11 | ED_ITS ---
HPI HPI - General Adult General Chief complaint: Head Injury Stated complaint: FALL HEAD INJURY Time Seen by Provider: 06/05/25 08:35 Source: patient Mode of arrival: walk-in Limitations: no limitations History of Present Illness HPI narrative: The patient is a lanette 70-year-old female who presents to the emergency department with her . She is being evaluated today for a laceration that will not stop bleeding on her face. At 2200 last evening, the patient had a mechanical trip and fall. She stated that she hit her head on the counter when she went down. She denies any blood thinners. No loss of consciousness. No headache. No neck pain or stiffness. Patient denies any nausea or vomiting. No blurry vision, double vision, loss of vision. Patient denies any difficulty thinking or concentrating. No photophobia. Patient's is at bedside and states that her behavior and demeanor are at baseline. Patient does not feel abnormally tired. Patient does tell me that she has an irregularly shaped pupil on the left side from a previous surgical intervention. This is not new. No extremity injuries or other complaints at this time. She is just frustrated luz marina t she is unable to get the laceration to stop bleeding. Related Data Home Medications ?Medication ?Instructions ?Recorded ?Confirmed amlodipine 5 mg tablet 5 mg PO DAILY 06/05/2506/05 dorzolamide 22.3 mg-timolol 6.8 1 drp ophthalmic (eye) Q12H 06/05/25 06/05/25 mg/mL eye drops lisinopril 40 mg tablet 40 mg PO DAILY 06/05/2505/19 Allergies Allergy/AdvReac Type Severity Reaction Status Date / Time Penicillins Allergy Intermediate Rash Verified 06/05/25 08:27 Opioid HPI Opioid Management Most Recent Opioid Data: Last Pain Scale 2 Today, 08:33 Review of Systems ROS Narrative 10 Systems were reviewed, and unless not ed in the HPI, all other systems are reviewed, unremarkable, or noncontributory. PFSH PFS Social History Little interest or pleasure in doing things: not at all Feeling down, depressed, or hopeless: not at all Exam Narrative Exam Narrative: Prior to examining the patient, I have washed with hospital approved and provided Antiseptic Hand Professor Of Forest Planning and have also applied gloves.? Prior to touching the patient, I asked for consent to examine the patient.? GCS 15 General: Alert and oriented, well nourished, mild distress. Eye: PERRL, EOMI, normal conjunctiva. Right pupil is 3 mm and reactive. Left pupil is oval-shaped and 5 x 6 mm in size and not reactive to light. HENT: Normocephalic, normal hearing, moist oral mucosa, no scleral icterus, no sinus tenderness. No loose or missing teeth. No hemotympanums. No septal hematoma. No raccoon eyes. No Chang sign. Neck: Supple, non-tender, no carotid bruits, no JVD, no lymphadenopathy. No midline point tenderness. Lungs: Clear to auscultation and percussion, non-labored respiration. No rhonchi, rales, wheezing Heart: Normal rate, regular rhythm, no murmur, gallop or edema. Abdomen: Soft, nontender nondistended. No guarding. No rebound. Non- distended, normal bowel sounds, no masses. Musculoskeletal: Normal range of motion and strength, no tenderness or swelling. Skin: Skin is warm, dry and pink, no rashes or lesions. 1.8 cm laceration to the left forehead area. Neurologic: Awake, alert, and oriented X3, CN II-XII intact. Psychiatric: Cooperative, appropriate mood and affect.? Following the conclusion of the examination, I have washed my hands thoroughly after removing examination gloves. Constitutional Vital Signs, click to edit/add: Last Vital Signs Temp 97.6 F 06/05/25 08:27 Pulse 78 06/05/25 08:27 Resp 18 06/05/25 08:27 BP 151/83 H 06/05/25 09:23 Pulse Ox 98 06/05/25 08:27 O2 Del Method Room Air 06/05/25 08:27 Course Course Hospital Course: In summary the patient is a very pleasant 70-year-old female who presents to the emergency department after having a mechanical fall. Patient and her had pros and cons discussed of doing a CAT scan of the head versus not. Being that the patient is asymptomatic in all realms of trauma other than the laceration they have elected to not have the CT scan which I think is reasonabl e. Patient had laceration repair. Good approximation of tissues was obtained. Patient tolerated the procedure well. At this time I feel like the patient can go home. She will get her sutures out in 5 to 7 days. Vital Signs Vital signs: Vital Signs Temperature 97.6 F 06/05/25 08:27 Pulse Rate 78 06/05/25 08:27 Respiratory Rate 18 06/05/25 08:27 Blood Pressure 178/95 H 06/05/25 08:27 Pulse Oximetry 98 06/05/25 08:27 Oxygen Delivery Method Room Air 06/05/25 08:27 Temperature 97.6 F 06/05/25 08:27 Pulse Rate 78 06/05/25 08:27 Respiratory Rate 18 06/05/25 08:27 Blood Pressure 151/83 H 06/05/25 09:23 Pulse Oximetry 98 06/05/25 08:27 Oxygen Delivery Method Room Air 06/05/25 08:27 Medical Decision Making Differential Diagnosis Differential Diagnosis: Laceration repair, closed head injury, extremity injury, mechanical fall, s Medical Records Medical records reviewed: Yes I reviewed the patient's medical records Discharge Plan Discharge Chief Complaint: Head Injury Clinical Impression: Closed head injury, Facial laceration Patient Disposition: Home, Self-Care Time of Disposition Decision: 09:13 Condition: Good Mode of Transportation: Private Vehicle Prescriptions / Home Meds: No Action amlodipine 5 mg tablet 5 mg PO DAILY dorzolamide-timolol 22.3-6.8 mg/mL drops 1 drp OPHTHALMIC (EYE) Q12H Patient Comments: LEFT EYE lisinopril 40 mg tablet 40 mg PO DAILY Print Language: Hebrew Instructions: Laceration (ED), Head Injury (ED) Additional Instructions: Thank you for allowing me the opportunity to care for you today. Please do not use any Betadine, peroxide, or alcohol on your laceration. You can just simply wash it with soap and water and pat dry. You are okay to take a shower and wash your face. Please apply a small thin layer of antibiotic ointment if you like. You may apply a Band-Aid. To minimize scarring you would want to use sunblock after the sutures are removed. Please get your sutures removed in 5 to 6 days. This can be done at a primary care doctor's office, urgent care, or emergency department. You would want to return to medical clinic if you see any redness, increased pain, or drainage. Again, I hope you have a lanette day. Referrals: Physician,Non-Staff, MD [Primary Care Provider] - 1 week Discharge Date/Time: 06/05/25 09:25 Procedures ED Laceration Laceration Laceration 1: Site: face (left forehead) Side (if applicable): left Size (cm): 1.8 Description: linear Depth: simple, single layer Anesthetic used: with epi Anesthesia technique: local infiltration Amount (ml): 3 Pre-repair: wound explored, irrigated extensively and deep structures intact Skin layer closed with: other (Prolene) Size (cm): 6-0 Number of sutures: 6 Technique: running Additional comments: Tolerated the procedure well. Good cosmetic result. Patient understands the discharge care. Sutures should be removed in 5 days.
[2025-06-05 09:23] VITALS: BP 151/83
== END 2025-06-05 09:25 | disposition home or self-care (01) ==
PROVIDERS: Emergency Provider Emergency Medicine; PCP Family Medicine
DX: S01.81XA Laceration without foreign body of other part of head, initial encounter (principal); S09.8XXA Other specified injuries of head, initial encounter; W01.198A Fall on same level from slipping, tripping and stumbling with subsequent striking against other object, initial encounter
CPT/HCPCS: 12011; 99282